=== PATIENT | female | born 1980 | race Caucasian/White ===

== ENCOUNTER 2022-10-13 16:45 | Inpatient (IN) ==
--- NOTE | 2022-10-13 17:07 | Emergency Department Note ---
Impression & Plan Alcohol withdrawal, High anion gap metabolic acidosis, Alcoholic ketoacidosis, Acute lactic acidosis, Dehydration, Lower abdominal pain, Transaminitis ED Provider Note NAME: DAX BAUM AGE: 42 SEX: F ARRIVES VIA: Ambulance INFORMANT: Patient ED PROVIDER(S): Quintin Alfred MD CHIEF COMPLAINT: Abdominal pain PLAN: Disposition: Admit MEDICAL DECISION MAKING: The patient is a pleasant 42-year-old woman with a past medical history of alcohol use disorder who presents to the emergency department for evaluation of nausea, body aches, feverishness and lower abdominal pain for the past several days worsening today and occurs in the setting of having elective bilateral salpingectomy 10 days ago at [facility] for sterilization. She eventually acknowledged that she does drink alcohol daily but did not drink for approximately a week after her surgery until she understood she was "cleared". She admits to resuming her alcohol consumption which typically will be a "bottle" of hard liquor/vodka several days ago around the onset of her symptoms. She denies cough, congestion, diarrhea, blood or burning with urination. On arrival to the emergency department the patient is anxious/restless, mildly tremulous, afebrile with heart rate in the 100s and blood pressure 150s/90s and vital signs otherwise stable. She appears clinically dry. She has mild lower abdominal tenderness without guarding or rebound. EKG without overt acute ischemia. CXR negative for acute cardiopulmonary process. WBC, hemoglobin and platelets within normal limits. INR 1.0, within normal limits. Chemistry demonstrates elevated anion gap metabolic acidosis with anion gap of 23 and bicarbonate of 16. Lactic acid 3.5 which cleared to 1.8 following IV fluid hydration. UA demonstrates 1+ bacteria however contaminated but with 4+ ketones consistent with the patient's clinically dry appearance and with suspected alcoholic ketoacidosis. LFTs were elevated with total bilirubin 2.0 and direct bilirubin 0.4 with AST and ALT 5858, respectively. Lipase not elev ated. TSH within limits. hCG was negative. Sodium 130 consistent with the patient alcohol use. Respiratory viral panel/[employer] was negative CT of the abdomen pelvis was negative for acute abnormalities. Note is made of hepatic steatosis. Upon evaluation patient was feeling some improvement following IV fluid hydration 30+cc/kg including D5 normal saline for suspected alcoholic ketoacidosis, antiemetics and IV Ativan for alcohol withdrawal. However she still was tachycardic and mildly tremulous and we did discuss that her symptoms likely are multifactorial related to component of alcohol withdrawal alcoholic ketoacidosis and dehydration in the setting of her postoperative status. She did agree with plan for admission for further management. [facility] for [facility]. Further management per admitting team. Triage Nursing notes reviewed and agree them. Prior/outside medical records reviewed Vital Signs: reviewed Differential diagnosis: Gastroenteritis, food borne illness, infections, appendicitis, diverticulitis, inflammatory bowel disease, obstruction, GI bleed, biliary pathology, volvulus, as well as other pathologies. ER treatment provided: See below. Diagnostics interpreted by me: ECG: Sinus tachycardia, 125 bpm, no ectopy, LVH, no overt ST elevation or depression, QTc 473, QRS 80. Cardiac Monitoring: An order for continuous cardiac monitoring was placed and demonstrated Sinus tachycardia, 125 bpm, no ectopy Laboratory studies: See below Imaging studies: See below Consultation(s): [facility] the patient for admission. HPI: The patient is a pleasant 42-year-old woman with a past medical history of alcohol use disorder who presents to the emergency department for evaluation of nausea, body aches, feverishness and lower abdominal pain for the past several days worsening today and occurs in the setting of having elective bilateral salpingectomy 10 days ago at [facility] for sterilization. She eventually acknowledged that she does drink alcohol daily but did not drink for approximately a week after her surgery until she understood she was "cleared". She admits to resuming her alcohol consumption which typically will be a "bottle" of hard liquor/vodka several days ago around the onset of her symptoms. She denies cough, congestion, diarrhea, blood or burning with urination. ROS: See above HPI for pertinent positives & negatives. A total of 10 systems reviewed and were otherwise negative. VITALS:See Below PHYSICAL EXAMINATION: GENERAL: Awake, alert, uncomfortable-appearing, in no distress HENT: Normocephalic, atraumatic. Oropharynx dry mucous membranes. EYES: Normal conjunctiva. Sclera non-icteric. NECK: Supple. No nuchal rigidity. FROM. No JVD. RESPIRATORY: Clear to auscultation. CARDIAC: Tachycardic rate, normal rhythm. Extremities warm and well perfused. Pulses equal. ABDOMEN: Soft, non-distended. Mild lower abdominal tenderness to palpation. No rebound or guarding. No masses. RECTAL: Deferred. MUSCULOSKELETAL: Chest examination reveals no tenderness. The back is symmetrical on inspection without obvious abnormality. There is no CVA tenderness to palpation. No joint edema. LOWER EXTREMITIES: Calves are equal size bilaterally and non-tender. No edema. No discoloration. NEURO: No focal sensory or motor deficits noted. Restless, mildly tremulous. DTRs within normal limits. There is no clonus. 5/5 strength and SILT x 4 extremities. Intact finger to nose. SKIN: No rash or jaundice noted. ED COURSE: Critical Care: I have personally spent greater than 75 minutes of critical care time in the direct management of this patient. This includes bedside care, interpretation of diagnostic studies, and testing, discussion with consultants, patient, and family members, and other required patient management activities. This 75 minutes is in excess of all separately billable procedures. Quintin Alfred MD Past Med/Surg History Medical History Alcohol use disorder Social History Smoking Status: Former smoker Tobacco Type: Cigarettes Second Hand Exposure: No; Do You Dip or Chew Tobacco: No; Tobacco Cessation Education Requested by Patient: No Hx Alcohol Use: Yes Alcohol type: hard liquor Hx Substance Use: No Preferred Language: Wallisian Communication Ability: Effective Call Center Trainer Required: No Beliefs That Will Affect Care: None Current Living Situation: Alone and Family Current Living Situation Comment: has 3 young daughters Other Information That Helps Us Care for You: No Feels Safe at Home: Yes Safety Concerns: Feels Safe At This Time Assistive Devices: None Allergies Allergies Allergy/AdvReac Type Severity Reaction Status Date / Time No Known Allergies Allergy Unverified 10/13/22 19:25 Home Meds Home Medications Medication Instructions Recorded Confirmed ibuprofen 200 mg tablet (Advil) 600 mg PO Q8 PRN Pain 10/13/22 10/13/22 Results & Data (ED) Vital Signs Vital Signs - 24 hr 10/13/22 16:53 10/13/22 17:00 10/13/22 17:03 Temperature 36.6 C 36.6 C Temperature Source Oral Oral Pulse Rate Pulse Rate [Radial] 109 H Pulse Rhythm [Radial] Regular Pulse Strength [Radial] Normal Respiratory Rate 17 20 Respiratory Effort / Characteristics Non-Labored Spontaneous Non-Labored Spontaneous Respiratory Depth Normal Normal Respiratory Pattern Regular Regular Blood Pressure [Left Arm] 159/99 H Blood Pressure Mean [Left Arm] 119 Blood Pressure Position [Left Arm] Pulse Oximetry 98 96 Oxygen Delivery Method Room Air Sepsis Recent Fever Within 48 Hours No Sepsis New/Unexplained Change in Mental Status Yes Sepsis Action Taken by Nursing No Action Required 10/13/22 17:03 10/13/22 19:09 10/13/22 21:06 Temperature Temperature Source Pulse Rate 108 H Pulse Rate [Radial] 116 H 121 H Pulse Rhythm [Radial] Pulse Strength [Radial] Respiratory Rate 18 18 Respiratory Effort / Characteristics Non-Labored Spontaneous Non-Labored Spontaneous Respiratory Depth Normal Normal Respiratory Pattern Blood Pressure [Left Arm] 153/99 H 166/95 H Blood Pressure Mean [Left Arm] 117 118 Blood Pressure Position [Left Arm] Sitting Sitting Pulse Oximetry 98 98 Oxygen Delivery Method Room Air Room Air Sepsis Recent Fever Within 48 Hours Sepsis New/Unexplained Change in Mental Status Sepsis Action Taken by Nursing 10/13/22 21:11 10/13/22 22:01 10/13/22 23:13 Temperature Temperature Source Pulse Rate 122 H Pulse Rate [Radial] 120 H 128 H Pulse Rhythm [Radial] Pulse Strength [Radial] Respiratory Rate 18 17 Respiratory Effort / Characteristics Non-Labored Spontaneous Respiratory Depth Normal Respiratory Pattern Blood Pressure [Left Arm] 140/93 136/87 Blood Pressure Mean [Left Arm] 108 103 Blood Pressure Position [Left Arm] Lying Pulse Oximetry 98 93 Oxygen Delivery Method Room Air Room Air Sepsis Recent Fever Within 48 Hours Sepsis New/Unexplained Change in Mental Status Sepsis Action Taken by Nursing Laboratory Data Attestation: I reviewed the patient's lab results. 10/13/22 17:00 10/13/22 17:00 Lab Results 10/13/22 10/13/22 10/13/22 Range/Units 17:00 17:00 17:00 WBC 6.63 (4.8-10.8) K/ul RBC 4.26 (4.20-5.40) M/uL Hgb 14.0 (12.0-16.0) g/dl Hct 39.2 (37.0-47.0) % MCV 92.0 (80.0-100.0) fL MCH 32.9 (25.0-34.0) pg MCHC 35.7 (32.0-36.0) g/dL RDW Std Deviation 41.5 (36.4-46.3) fL RDW Coeff of Andree 12.3 (11.5-14.5) % Plt Count 176 (130-400) K/uL MPV 10.2 (9.4-12.4) fL Immature Gran % (Auto) 0.2 % Neut % (Auto) 76.2 % Lymph % (Auto) 17.8 % Cochran % (Auto) 4.7 % Eos % (Auto) 0.0 % Baso % (Auto) 1.1 % Neut # (Auto) 5.06 (1.40-6.50) K/uL Lymph # (Auto) 1.18 L (1.2-3.4) K/uL Cochran # (Auto) 0.31 (0.11-0.59) K/uL Eos # (Auto) 0.00 (0-0.50) K/uL Baso # (Auto) 0.07 (0-0.2) K/uL Immature Gran # (Auto) 0.01 (0.01-0.20) K/uL PT (9.0-12.0) Seconds INR (0.9-1.1) Sodium 130 L (136-145) mmol/L Potassium 3.4 L (3.5-5.1) mmol/L Chloride 91 L (98-107) mmol/L Carbon Dioxide 16 L (21-32) mmol/L Anion Gap 23 H (3-11) BUN 6 (6-23) mg/dl Creatinine 0.57 L (0.6-1.2) mg/dl Est Cr Clr Drug Dosing 154.0 ml/min Est GFR ( Amer) 133.5 ml/min Est GFR (Non-Af Amer) 115.1 ml/min BUN/Creatinine Ratio 10.5 (10-20) Glucose 96 (70-99(Fasting)) mg/dl Lactate (0.4-2.0) mmol/L Calcium 9.6 (8.6-10.3) mg/dl Phosphorus 2.4 L (2.5-4.9) mg/dl Magnesium 2.0 (1.7-2.4) mg/dl Total Bilirubin 2.0 H (0.2-1.0) mg/dl Direct Bilirubin 0.4 H (0-0.2) mg/dl AST 58 H (13-39) U/L ALT 58 H (7-52) U/L Alkaline Phosphatase 67 (34-104) U/L Total Protein 7.7 (6.0-8.3) gm/dl Albumin 5.0 (3.4-5.0) gm/dl Globulin 2.7 (2.5-4.0) gm/dl Albumin/Globulin Ratio 1.9 (0.9-2) Lipase 25 (11-82) U/L TSH 1.503 (0.300-4.500) uIu/ml HCG, Qual (Negative) Urine Color Urine Appearance (Clear) Urine pH (4.5-7.5) Ur Specific Daykin (1.000-1.030) Urine Protein (Negative) Urine Glucose (UA) (Negative) Urine Ketones (Negative) Urine Blood (Negative) Urine Nitrite (Negative) Urine Bilirubin (Negative) Urine Urobilinogen (Negative) Ur Leukocyte Esterase (Negative) Urine WBC (Auto) (0-5) /hpf Urine RBC (Auto) (0-4) /hpf U Hyaline Cast (Auto) (0-5) /lpf U Epithel Cells (Auto) (0-5) /lpf Urine Bacteria (Auto) (Negative) Urine Opiates Screen (Neg) Ur Methadone, Qual (Neg) Urine Barbiturates (Neg) Ur Phencyclidine (PCP) (Neg) U Amphetamin/Meth Scrn (Neg) MDMA (Ecstasy) Screen (Neg) U Benzodiazepines Scrn (Neg) Ur Cocaine Metabolite (Neg) U Marijuana (THC) Screen (Neg) Ethyl Alcohol mg/dL (<10.0) mg/dl Adenovirus (PCR) (NotDetected) B. pertussis DNA (PCR) (NotDetected) B.parapertussis DNA PCR (NotDetected) C. pneumoniae DNA (PCR) (NotDetected) Coronavirus OC43 (PCR) (NotDetected) Coronavirus HKU1 (PCR) (NotDetected) Coronavirus 229E (PCR) (NotDetected) SARS-CoV-2 (PCR) (NotDetected) Coronavirus NL63 (PCR) (NotDetected) Human Metapneumovir PCR (NotDetected) Influenza Type A (PCR) (NotDetected) Influenza Type B (PCR) (NotDetected) M. pneumoniae (PCR) (NotDetected) Parainfluenza 1 (PCR) (NotDetected) Parainfluenza 2 (PCR) (NotDetected) Parainfluenza 3 (PCR) (NotDetected) Parainfluenza 4 (PCR) (NotDetected) RSV (PCR) (NotDetected) Entero/Rhino (PCR) (NotDetected) 10/13/22 10/13/22 10/13/22 Range/Units 17:00 17:10 17:25 WBC (4.8-10.8) K/ul RBC (4.20-5.40) M/uL Hgb (12.0-16.0) g/dl Hct (37.0-47.0) % MCV (80.0-100.0) fL MCH (25.0-34.0) pg MCHC (32.0-36.0) g/dL RDW Std Deviation (36.4-46.3) fL RDW Coeff of Andree (11.5-14.5) % Plt Count (130-400) K/uL MPV (9.4-12.4) fL Immature Gran % (Auto) % Neut % (Auto) % Lymph % (Auto) % Cochran % (Auto) % Eos % (Auto) % Baso % (Auto) % Neut # (Auto) (1.40-6.50) K/uL Lymph # (Auto) (1.2-3.4) K/uL Cochran # (Auto) (0.11-0.59) K/uL Eos # (Auto) (0-0.50) K/uL Baso # (Auto) (0-0.2) K/uL Immature Gran # (Auto) (0.01-0.20) K/uL PT 10.6 (9.0-12.0) Seconds INR 1.0 (0.9-1.1) Sodium (136-145) mmol/L Potassium (3.5-5.1) mmol/L Chloride (98-107) mmol/L Carbon Dioxide (21-32) mmol/L Anion Gap (3-11) BUN (6-23) mg/dl Creatinine (0.6-1.2) mg/dl Est Cr Clr Drug Dosing ml/min Est GFR ( Amer) ml/min Est GFR (Non-Af Amer) ml/min BUN/Creatinine Ratio (10-20) Glucose (70-99(Fasting)) mg/dl Lactate (0.4-2.0) mmol/L Calcium (8.6-10.3) mg/dl Phosphorus (2.5-4.9) mg/dl Magnesium (1.7-2.4) mg/dl Total Bilirubin (0.2-1.0) mg/dl Direct Bilirubin (0-0.2) mg/dl AST (13-39) U/L ALT (7-52) U/L Alkaline Phosphatase (34-104) U/L Total Protein (6.0-8.3) gm/dl Albumin (3.4-5.0) gm/dl Globulin (2.5-4.0) gm/dl Albumin/Globulin Ratio (0.9-2) Lipase (11-82) U/L TSH (0.300-4.500) uIu/ml HCG, Qual Negative (Negative) Urine Color Yellow Urine Appearance Clear (Clear) Urine pH 5.5 (4.5-7.5) Ur Specific Daykin 1.022 (1.000-1.030) Urine Protein 1+ H (Negative) Urine Glucose (UA) Negative (Negative) Urine Ketones 4+ H (Negative) Urine Blood 2+ H (Negative) Urine Nitrite Negative (Negative) Urine Bilirubin Negative (Negative) Urine Urobilinogen Negative (Negative) Ur Leukocyte Esterase Negative (Negative) Urine WBC (Auto) 1-5 (0-5) /hpf Urine RBC (Auto) 5-10 H (0-4) /hpf U Hyaline Cast (Auto) 1-5 (0-5) /lpf U Epithel Cells (Auto) >30 H (0-5) /lpf Urine Bacteria (Auto) 1+ H (Negative) Urine Opiates Screen (Neg) Ur Methadone, Qual (Neg) Urine Barbiturates (Neg) Ur Phencyclidine (PCP) (Neg) U Amphetamin/Meth Scrn (Neg) MDMA (Ecstasy) Screen (Neg) U Benzodiazepines Scrn (Neg) Ur Cocaine Metabolite (Neg) U Marijuana (THC) Screen (Neg) Ethyl Alcohol mg/dL (<10.0) mg/dl Adenovirus (PCR) (NotDetected) B. pertussis DNA (PCR) (NotDetected) B.parapertussis DNA PCR (NotDetected) C. pneumoniae DNA (PCR) (NotDetected) Coronavirus OC43 (PCR) (NotDetected) Coronavirus HKU1 (PCR) (NotDetected) Coronavirus 229E (PCR) (NotDetected) SARS-CoV-2 (PCR) (NotDetected) Coronavirus NL63 (PCR) (NotDetected) Human Metapneumovir PCR (NotDetected) Influenza Type A (PCR) (NotDetected) Influenza Type B (PCR) (NotDetected) M. pneumoniae (PCR) (NotDetected) Parainfluenza 1 (PCR) (NotDetected) Parainfluenza 2 (PCR) (NotDetected) Parainfluenza 3 (PCR) (NotDetected) Parainfluenza 4 (PCR) (NotDetected) RSV (PCR) (NotDetected) Entero/Rhino (PCR) (NotDetected) 10/13/22 10/13/22 10/13/22 Range/Units 17:25 17:30 17:56 WBC (4.8-10.8) K/ul RBC (4.20-5.40) M/uL Hgb (12.0-16.0) g/dl Hct (37.0-47.0) % MCV (80.0-100.0) fL MCH (25.0-34.0) pg MCHC (32.0-36.0) g/dL RDW Std Deviation (36.4-46.3) fL RDW Coeff of Andree (11.5-14.5) % Plt Count (130-400) K/uL MPV (9.4-12.4) fL Immature Gran % (Auto) % Neut % (Auto) % Lymph % (Auto) % Cochran % (Auto) % Eos % (Auto) % Baso % (Auto) % Neut # (Auto) (1.40-6.50) K/uL Lymph # (Auto) (1.2-3.4) K/uL Cochran # (Auto) (0.11-0.59) K/uL Eos # (Auto) (0-0.50) K/uL Baso # (Auto) (0-0.2) K/uL Immature Gran # (Auto) (0.01-0.20) K/uL PT (9.0-12.0) Seconds INR (0.9-1.1) Sodium (136-145) mmol/L Potassium (3.5-5.1) mmol/L Chloride (98-107) mmol/L Carbon Dioxide (21-32) mmol/L Anion Gap (3-11) BUN (6-23) mg/dl Creatinine (0.6-1.2) mg/dl Est Cr Clr Drug Dosing ml/min Est GFR ( Amer) ml/min Est GFR (Non-Af Amer) ml/min BUN/Creatinine Ratio (10-20) Glucose (70-99(Fasting)) mg/dl Lactate (0.4-2.0) mmol/L Calcium (8.6-10.3) mg/dl Phosphorus (2.5-4.9) mg/dl Magnesium (1.7-2.4) mg/dl Total Bilirubin (0.2-1.0) mg/dl Direct Bilirubin (0-0.2) mg/dl AST (13-39) U/L ALT (7-52) U/L Alkaline Phosphatase (34-104) U/L Total Protein (6.0-8.3) gm/dl Albumin (3.4-5.0) gm/dl Globulin (2.5-4.0) gm/dl Albumin/Globulin Ratio (0.9-2) Lipase (11-82) U/L TSH (0.300-4.500) uIu/ml HCG, Qual (Negative) Urine Color Urine Appearance (Clear) Urine pH (4.5-7.5) Ur Specific Daykin (1.000-1.030) Urine Protein (Negative) Urine Glucose (UA) (Negative) Urine Ketones (Negative) Urine Blood (Negative) Urine Nitrite (Negative) Urine Bilirubin (Negative) Urine Urobilinogen (Negative) Ur Leukocyte Esterase (Negative) Urine WBC (Auto) (0-5) /hpf Urine RBC (Auto) (0-4) /hpf U Hyaline Cast (Auto) (0-5) /lpf U Epithel Cells (Auto) (0-5) /lpf Urine Bacteria (Auto) (Negative) Urine Opiates Screen Neg (Neg) Ur Methadone, Qual Neg (Neg) Urine Barbiturates Neg (Neg) Ur Phencyclidine (PCP) Neg (Neg) U Amphetamin/Meth Scrn Neg (Neg) MDMA (Ecstasy) Screen Neg (Neg) U Benzodiazepines Scrn Neg (Neg) Ur Cocaine Metabolite Neg (Neg) U Marijuana (THC) Screen Neg (Neg) Ethyl Alcohol mg/dL 40.8 H (<10.0) mg/dl Adenovirus (PCR) Not Detected (NotDetected) B. pertussis DNA (PCR) Not Detected (NotDetected) B.parapertussis DNA PCR Not Detected (NotDetected) C. pneumoniae DNA (PCR) Not Detected (NotDetected) Coronavirus OC43 (PCR) Not Detected (NotDetected) Coronavirus HKU1 (PCR) Not Detected (NotDetected) Coronavirus 229E (PCR) Not Detected (NotDetected) SARS-CoV-2 (PCR) Not Detected (NotDetected) Coronavirus NL63 (PCR) Not Detected (NotDetected) Human Metapneumovir PCR Not Detected (NotDetected) Influenza Type A (PCR) Not Detected (NotDetected) Influenza Type B (PCR) Not Detected (NotDetected) M. pneumoniae (PCR) Not Detected (NotDetected) Parainfluenza 1 (PCR) Not Detected (NotDetected) Parainfluenza 2 (PCR) Not Detected (NotDetected) Parainfluenza 3 (PCR) Not Detected (NotDetected) Parainfluenza 4 (PCR) Not Detected (NotDetected) RSV (PCR) Not Detected (NotDetected) Entero/Rhino (PCR) Not Detected (NotDetected) 10/13/22 10/13/22 10/13/22 Range/Units 19:11 21:51 23:54 WBC (4.8-10.8) K/ul RBC (4.20-5.40) M/uL Hgb (12.0-16.0) g/dl Hct (37.0-47.0) % MCV (80.0-100.0) fL MCH (25.0-34.0) pg MCHC (32.0-36.0) g/dL RDW Std Deviation (36.4-46.3) fL RDW Coeff of Andree (11.5-14.5) % Plt Count (130-400) K/uL MPV (9.4-12.4) fL Immature Gran % (Auto) % Neut % (Auto) % Lymph % (Auto) % Cochran % (Auto) % Eos % (Auto) % Baso % (Auto) % Neut # (Auto) (1.40-6.50) K/uL Lymph # (Auto) (1.2-3.4) K/uL Cochran # (Auto) (0.11-0.59) K/uL Eos # (Auto) (0-0.50) K/uL Baso # (Auto) (0-0.2) K/uL Immature Gran # (Auto) (0.01-0.20) K/uL PT (9.0-12.0) Seconds INR (0.9-1.1) Sodium 130 L (136-145) mmol/L Potassium 3.6 (3.5-5.1) mmol/L Chloride 97 L (98-107) mmol/L Carbon Dioxide 17 L (21-32) mmol/L Anion Gap 16 H (3-11) BUN 6 (6-23) mg/dl Creatinine 0.60 (0.6-1.2) mg/dl Est Cr Clr Drug Dosing 146.3 ml/min Est GFR ( Amer) 131.2 ml/min Est GFR (Non-Af Amer) 113.2 ml/min BUN/Creatinine Ratio 10.0 (10-20) Glucose 171 H (70-99(Fasting)) mg/dl Lactate 3.5 H* 1.8 (0.4-2.0) mmol/L Calcium 8.5 L (8.6-10.3) mg/dl Phosphorus (2.5-4.9) mg/dl Magnesium (1.7-2.4) mg/dl Total Bilirubin (0.2-1.0) mg/dl Direct Bilirubin (0-0.2) mg/dl AST (13-39) U/L ALT (7-52) U/L Alkaline Phosphatase (34-104) U/L Total Protein (6.0-8.3) gm/dl Albumin (3.4-5.0) gm/dl Globulin (2.5-4.0) gm/dl Albumin/Globulin Ratio (0.9-2) Lipase (11-82) U/L TSH (0.300-4.500) uIu/ml HCG, Qual (Negative) Urine Color Urine Appearance (Clear) Urine pH (4.5-7.5) Ur Specific Daykin (1.000-1.030) Urine Protein (Negative) Urine Glucose (UA) (Negative) Urine Ketones (Negative) Urine Blood (Negative) Urine Nitrite (Negative) Urine Bilirubin (Negative) Urine Urobilinogen (Negative) Ur Leukocyte Esterase (Negative) Urine WBC (Auto) (0-5) /hpf Urine RBC (Auto) (0-4) /hpf U Hyaline Cast (Auto) (0-5) /lpf U Epithel Cells (Auto) (0-5) /lpf Urine Bacteria (Auto) (Negative) Urine Opiates Screen (Neg) Ur Methadone, Qual (Neg) Urine Barbiturates (Neg) Ur Phencyclidine (PCP) (Neg) U Amphetamin/Meth Scrn (Neg) MDMA (Ecstasy) Screen (Neg) U Benzodiazepines Scrn (Neg) Ur Cocaine Metabolite (Neg) U Marijuana (THC) Screen (Neg) Ethyl Alcohol mg/dL (<10.0) mg/dl Adenovirus (PCR) (NotDetected) B. pertussis DNA (PCR) (NotDetected) B.parapertussis DNA PCR (NotDetected) C. pneumoniae DNA (PCR) (NotDetected) Coronavirus OC43 (PCR) (NotDetected) Coronavirus HKU1 (PCR) (NotDetected) Coronavirus 229E (PCR) (NotDetected) SARS-CoV-2 (PCR) (NotDetected) Coronavirus NL63 (PCR) (NotDetected) Human Metapneumovir PCR (NotDetected) Influenza Type A (PCR) (NotDetected) Influenza Type B (PCR) (NotDetected) M. pneumoniae (PCR) (NotDetected) Parainfluenza 1 (PCR) (NotDetected) Parainfluenza 2 (PCR) (NotDetected) Parainfluenza 3 (PCR) (NotDetected) Parainfluenza 4 (PCR) (NotDetected) RSV (PCR) (NotDetected) Entero/Rhino (PCR) (NotDetected) Administered Medications Folic Acid (Folic Acid 1 Mg Tab) [facility] [place] Stop: 11/13/22 08:59 Last Admin: 10/14/22 09:14 Dose: Not Given Documented By: CB Lactated Ringer's (Lr) 1,000 mls @ 125 mls/hr IV .Q8H NAOMY Stop: 11/13/22 14:29 Last Admin: 10/14/22 14:36 Dose: 125 mls/hr Documented By: JAMES Lorazepam (Lorazepam 2 Mg/1 Ml Vial) 2 mg IV UD PRN; Protocol PRN Reason: EtOH Withdrawal AWSS Score 8,9 Stop: 11/13/22 14:06 Last Admin: 10/14/22 14:36 Dose: 2 mg Documented By: JAMES Multivitamins (Multivitamin Tab) 1 tab PO [facility] Stop: 11/13/22 08:59 Last Admin: 10/14/22 09:14 Dose: Not Given Documented By: JAMES Thiamine HCl (Thiamine Hcl 100 Mg Tab) 100 mg PO [facility] Stop: 11/13/22 08:59 Last Admin: 10/14/22 09:14 Dose: Not Given Documented By: CB Discontinued Medications Sodium Chloride (Nss 1000ml) 2,000 mls @ 999 mls/hr IV .Q2H1M ONE Stop: 10/13/22 19:18 Last Infusion: 10/13/22 20:46 Dose: 0 mls/hr Documented By: Admin: 10/13/22 17:50 Dose: 999 mls/hr Documented By: DL Acetaminophen (Ofirmev) 1,000 mg in 100 mls @ 400 mls/hr IV NOW STA Stop: 10/13/22 17:32 Last Infusion: 10/13/22 18:16 Dose: 0 mls/hr Documented By: Admin: 10/13/22 17:58 Dose: 400 mls/hr Documented By: KATH Famotidine (Pepcid 20mg Iv Push) 20 mg in 5 mls @ 2.5 mls/min IV NOW STA Stop: 10/13/22 17:43 Last Admin: 10/13/22 17:50 Dose: 2.5 mls/min Documented By: KATH Thiamine HCl 200 mg/ Sodium (Chloride) 52 mls @ 210 mls/hr IV NOW STA Stop: 10/13/22 19:07 Last Infusion: 10/13/22 21:04 Dose: 0 mls/hr Documented By: Admin: 10/13/22 20:08 Dose: 210 mls/hr Documented By: CC Dextrose/Sodium Chloride (D5w And Nss) 1,000 mls @ 999 mls/hr IV .Q1H1M STA Stop: 10/13/22 19:53 Last Infusion: 10/13/22 23:17 Dose: 0 mls/hr Documented By: Admin: 10/13/22 19:31 Dose: 999 mls/hr Documented By: CC Dextrose/Sodium Chloride (D5w And Nss) 1,000 mls @ 999 mls/hr IV .Q1H1M STA Stop: 10/13/22 22:15 Last Infusion: 10/13/22 23:39 Dose: 0 mls/hr Documented By: Admin: 10/13/22 22:30 Dose: 999 mls/hr Documented By: CC Potassium Chloride/Sodium Chloride (Normal Saline W/20 Meq Kcl) 20 meq in 1,000 mls @ 60 mls/hr IV .[id number] STA; Protocol Stop: 10/14/22 15:49 Last Infusion: 10/14/22 06:05 Dose: 0 mls/hr Documented By: Infusion: 10/14/22 06:05 Dose: 0 mls/hr Documented By: Admin: 10/13/22 23:31 Dose: 60 mls/hr Documented By: CC Lactated Ringer's (Lr) 1,000 mls @ 125 mls/hr IV .Q8H ONE Stop: 10/14/22 12:29 Last Infusion: 10/14/22 14:35 Dose: 0 mls/hr Documented By: Admin: 10/14/22 05:31 Dose: 80 mls/hr Documented By: LAT Ioversol (Optiray 320 100ml) 94 ml IV ONCE ONE Stop: 10/13/22 20:20 Last Admin: 10/13/22 20:19 Dose: 94 ml Documented By: SHAUNA Lorazepam (Lorazepam 2 Mg/1 Ml Vial) 1 mg IV NOW STA Stop: 10/13/22 17:43 Last Admin: 10/13/22 17:55 Dose: 1 mg Documented By: KATH Lorazepam (Lorazepam 2 Mg/1 Ml Vial) 1 mg IV NOW STA Stop: 10/13/22 21:16 Last Admin: 10/13/22 21:41 Dose: 1 mg Documented By: CC Lorazepam (Lorazepam 2 Mg/1 Ml Vial) 2 mg IV NOW STA Stop: 10/13/22 22:49 Last Admin: 10/13/22 23:09 Dose: 2 mg Documented By: REID Ondansetron HCl (Ondansetron Inj 2 Mg/Ml 2 Ml Vial) 4 mg IV NOW STA Stop: 10/13/22 17:43 Last Admin: 10/13/22 17:52 Dose: 4 mg Documented By: KATH Potassium Chloride (Potassium Chloride Pwd 20 Meq Pack) 40 meq PO NOW STA Stop: 10/13/22 23:08 Last Admin: 10/13/22 23:31 Dose: 40 meq Documented By: CC Sucralfate (Sucralfate 1 Gm/10 Ml Udc) 1 gm PO NOW STA Stop: 10/13/22 22:49 Last Admin: 10/13/22 23:08 Dose: 1 gm Documented By: AN Imaging Data Radiologist's Impression: Chest X-Ray 10/13/22 17:17 XR chest 1V portable CLINICAL HISTORY: dizziness TECHNIQUE: Single frontal radiograph of the chest was obtained. Comparison: None available at the time of this dictation. FINDINGS: No lines and tubes are seen. The cardiomediastinal silhouette is normal. The lungs are clear. No evidence of pleural effusion or pneumothorax. IMPRESSION: No acute chest disease. ACT 112: Negative or not required by law. Electronically signed by: Lobo Murphy M.D. 10/13/2022 5:57 PM Abdomen/Pelvis CT 10/13/22 17:19 Exam(s): CT ABDOMEN + PELVIS With Contrast IV Amt: 94 ml optiray 320 EXAM: CT Abdomen and Pelvis With Intravenous Contrast CLINICAL HISTORY: Reason for exam: abd pain, 10 days b s/p salpingectomy. TECHNIQUE: Axial computed tomography images of the abdomen and pelvis with intravenous contrast. CTDI is 27.62 mGy and DLP is 1451.92 mGy-cm. Automated exposure control was utilized for the study. A dose lowering technique was utilized adhering to the principles of ALARA. CONTRAST: Patient received 94 ml optiray 320 of IV contrast COMPARISON: No relevant prior studies available. FINDINGS: Lung bases: Unremarkable. No mass. No consolidation. ABDOMEN: Liver: Severe hepatic steatosis. Gallbladder and bile ducts: Unremarkable. No calcified stones. No ductal dilation. Pancreas: Unremarkable. No mass. No ductal dilation. Spleen: Unremarkable. No splenomegaly. Adrenals: Unremarkable. No mass. Kidneys and ureters: Unremarkable. No solid mass. No hydronephrosis. Stomach and bowel: Diverticulosis, without acute diverticulitis. No small bowel obstruction. No free intraperitoneal air. PELVIS: Appendix: Normal appendix. Bladder: Unremarkable. No mass. Reproductive: Unremarkable as visualized. ABDOMEN and PELVIS: Intraperitoneal space: Unremarkable. No free air. No significant fluid collection. Bones/joints: No acute fracture. No dislocation. Soft tissues: Unremarkable. Vasculature: Unremarkable. No abdominal aortic aneurysm. Lymph nodes: Unremarkable. No enlarged lymph nodes. IMPRESSION: 1. Normal appendix. 2. Severe hepatic steatosis. 3. Diverticulosis, without acute diverticulitis. No small bowel obstruction. No free intraperitoneal air. Electronically signed by: Gonzalo Mcnair MD 10/13/22 21:04 PM Discharge Plan Visit Data Chief Complaint: Dizziness Stated Complaint: DIZZINESS, HOT TO TOUCH, ABD SURGERY 10 DAYS AGO ED Provider: Quintin Alfred Discharge Problem: Alcohol withdrawal, High anion gap metabolic acidosis, Alcoholic ketoacidosis, Acute lactic acidosis, Dehydration, Lower abdominal pain, Transaminitis Patient Disposition: Admitted As Inpatient Discharge Instructions Interventions: ED Discharge Assessment Last Done: 10/14/22 01:07
[2022-10-13] MEDS ORDERED: SODIUM CHLORIDE 0.9% 1000ML 2,000 ML IV ONE (17:18)
[2022-10-13] MEDS ORDERED: ACETAMINOPHEN 1,000 MG/100 ML VIAL IV STA (17:18)
[2022-10-13 17:41] LABS: Basophils # (auto) 0.07 K/uL (0-0.2); Basophils % (auto) 1.1 %; Hematocrit (blood only) 39.2 % (37.0-47.0); Immature Granulocytes # (auto) 0.01 K/uL (0.01-0.20); Immature Granulocytes % (auto) 0.2 %; Lymphocytes # (auto) 1.18 K/uL (1.2-3.4); Lymphocytes % (auto) 17.8 %; Mean Corpuscular Hemoglobin 32.9 pg (25.0-34.0); Mean Corpuscular Hgb Conc 35.7 g/dL (32.0-36.0); Mean Platelet Volume 10.2 fL (9.4-12.4); Monocytes # (auto) 0.31 K/uL (0.11-0.59); Monocytes % (auto) 4.7 %; Neutrophils # (auto) 5.06 K/uL (1.40-6.50); Neutrophils % (auto) 76.2 %; Platelet Count 176 K/uL (130-400); RDW Coefficient of Variation 12.3 % (11.5-14.5); RDW Standard Deviation 41.5 fL (36.4-46.3); Red Blood Count 4.26 M/uL (4.20-5.40); White Blood Count 6.63 K/ul (4.8-10.8)
[2022-10-13] MEDS ORDERED: LORazepam 2 MG/1 ML VIAL IV STA ×3 (17:42→22:48)
[2022-10-13] MEDS ORDERED: FAMOTIDINE 20MG IV PUSH 20 MG/5 ML SYR IV STA (17:42)
[2022-10-13] MEDS ORDERED: ONDANSETRON INJ 2 MG/ML 2 ML VIAL IV STA (17:42)
[2022-10-13 17:47] LABS: Appearance Urine Clear (Clear); Bacteria Urine Automated 1+ (Negative); Bilirubin Urine Negative (Negative); Blood Urine 2+ (Negative); Color Urine Yellow; Epithelial Cell Urine Auto >30 /lpf (0-5); Glucose Urine UA Negative (Negative); Ketones Urine 4+ (Negative); Leukocyte Esterase Urine Negative (Negative); Nitrite Urine Negative (Negative); Protein Urine 1+ (Negative); Specific Gravity Urine 1.022 (1.000-1.030); Urobilinogen Urine Negative (Negative); pH Urine 5.5 (4.5-7.5)
[2022-10-13 17:52] LABS: Pregnancy Test, Serum Negative (Negative)
[2022-10-13 17:53] LABS: Albumin Globulin Ratio 1.9 (0.9-2); BUN Creatinine Ratio 10.5 (10-20); Calcium 9.6 mg/dl (8.6-10.3); Est GFR (African American) 133.5 ml/min; Est GFR (Non-African American) 115.1 ml/min; Globulin 2.7 gm/dl (2.5-4.0); Phosphorus 2.4 mg/dl (2.5-4.9); Potassium 3.4 mmol/L (3.5-5.1); Total Protein 7.7 gm/dl (6.0-8.3)
--- NOTE | 2022-10-13 17:59 | XRay Report ---
XR chest 1V portable CLINICAL HISTORY: dizziness TECHNIQUE: Single frontal radiograph of the chest was obtained. Comparison: None available at the time of this dictation. FINDINGS: No lines and tubes are seen. The cardiomediastinal silhouette is normal. The lungs are clear. No evid ence of pleural effusion or pneumothorax. IMPRESSION: No acute chest disease. ACT 112: Negative or not required by law. Electronically signed by: Lobo Murphy M.D. 10/13/2022 5:57 PM
[2022-10-13 18:27] LABS: Adenovirus PCR Not Detected (NotDetected); Bordetella parapertussis PCR Not Detected (NotDetected); Bordetella pertussis PCR Not Detected (NotDetected); Chlamydia pneumoniae PCR Not Detected (NotDetected); Coronavirus 229E PCR Not Detected (NotDetected); Coronavirus CoV-2 (COVID19)PCR Not Detected (NotDetected); Coronavirus HKU1 PCR Not Detected (NotDetected); Coronavirus NL63 PCR Not Detected (NotDetected); Coronavirus OC43PCR Not Detected (NotDetected); Human Metapneumovirus PCR Not Detected (NotDetected); Influenza A PCR Not Detected (NotDetected); Influenza B PCR Not Detected (NotDetected); Mycoplasma pneumoniae PCR Not Detected (NotDetected); Parainfluenza Virus 1 PCR Not Detected (NotDetected); Parainfluenza Virus 2 PCR Not Detected (NotDetected); Parainfluenza Virus 3 PCR Not Detected (NotDetected); Parainfluenza Virus 4 PCR Not Detected (NotDetected); Respiratory Syncytial VirusPCR Not Detected (NotDetected); Rhinovirus/Enterovirus PCR Not Detected (NotDetected)
[2022-10-13] MEDS ORDERED: THIAMINE HCL 200 MG in SODIUM CHLORIDE 0.9% 50 ML IV STA (18:53)
[2022-10-13] MEDS ORDERED: D5W AND NSS 1,000 ML IV STA ×2 (18:53→21:15)
[2022-10-13 19:13] LABS: Bilirubin Direct 0.4 mg/dl (0-0.2)
[2022-10-13] MEDS ORDERED: OPTIRAY 320 100ml IV ONE (20:19)
--- NOTE | 2022-10-13 21:04 | CT Scan Report ---
Exam(s): CT ABDOMEN + PELVIS With Contrast IV Amt: 94 ml optiray 320 EXAM: CT Abdomen and Pelvis With Intravenous Contrast CLINICAL HISTORY: Reason for exam: abd pain, 10 days b s/p salpingectomy. TECHNIQUE: Axial computed tomography images of the abdomen and pelvis with intravenous contrast. CTDI is 27.62 mGy and DLP is 1451.92 mGy-cm. Automated exposure control was utilized for the study. A dose lowering technique was utilized adhering to the principles of ALARA. CONTRAST: Patient received 94 ml optiray 320 of IV contrast COMPARISON: No relevant prior studies available. FINDINGS: Lung bases: Unremarkable. No mass. No consolidation. ABDOMEN: Liver: Severe hepatic steatosis. Gallbladder and bile ducts: Unremarkable. No calcified stones. No ductal dilation. Pancreas: Unremarkable. No mass. No ductal dilation. Spleen: Unremarkable. No splenomegaly. Adrenals: Unremarkable. No mass. Kidneys and ureters: Unremarkable. No solid mass. No hydronephrosis. Stomach and bowel: Diverticulosis, without acute diverticulitis. No small bowel obstruction. No free intraperitoneal air. PELVIS: Appendix: Normal appendix. Bladder: Unremarkable. No mass. Reproductive: Unremarkable as visualized. ABDOMEN and PELVIS: Intraperitoneal space: Unremarkable. No free air. No significant fluid collection. Bones/joints: No acute fracture. No dislocation. Soft tissues: Unremarkable. Vasculature: Unremarkable. No abdominal aortic aneurysm. Lymph nodes: Unremarkable. No enlarged lymph nodes. IMPRESSION: 1. Normal appendix. 2. Severe hepatic steatosis. 3. Diverticulosis, without acute diverticulitis. No small bowel obstruction. No free intraperitoneal air. Electronically signed by: Gonzalo Mcnair MD 10/13/22 21:04 PM
[2022-10-13 21:09] LABS: Amphetamines+Metham, Urine Neg (Neg); Barbiturates, Urine Neg (Neg); Benzodiazepine, Urine Neg (Neg); Cocaine, Urine Neg (Neg); MDMA (Ecstacy), Urine Neg (Neg); Methadone, Urine Neg (Neg); Opiate, Urine Neg (Neg); Phencyclidine, Urine Neg (Neg)
[2022-10-13] MEDS ORDERED: SUCRALFATE 1 GM/10 ML UDC PO STA (22:48)
[2022-10-13] MEDS ORDERED: POTASSIUM CHLORIDE PWD 20 MEQ PACK PO STA (23:07)
[2022-10-13] MEDS ORDERED: NSS + 20MEQ KCL 20 MEQ/1,000 ML BAG IV STA (23:10)
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
[2022-10-13] MEDS ORDERED: oxyCODONE HCL IR 5 MG TAB (IMMEDIATE RELEASE) PO PRN (23:59)
[2022-10-13] MEDS ORDERED: PROMETHAZINE HCL 12.5 MG in SODIUM CHLORIDE 0.9% 50 ML IV PRN (23:59)
[2022-10-13] MEDS ORDERED: MECLIZINE 12.5 MG TAB PO PRN (23:59)
[2022-10-13] MEDS ORDERED: LORazepam 2 MG/1 ML VIAL IV PRN (23:59)
[2022-10-14] MEDS ORDERED: ACETAMINOPHEN 325 MG TAB PO PRN (00:02)
[2022-10-14 00:06] LABS: Prothrombin Time 10.6 Seconds (9.0-12.0)
[2022-10-14 00:27] LABS: Calcium 8.5 mg/dl (8.6-10.3); Creatinine Clr Calc Pharmacy 146.3 ml/min; Est GFR (African American) 131.2 ml/min; Est GFR (Non-African American) 113.2 ml/min; Potassium 3.6 mmol/L (3.5-5.1)
[2022-10-14] MEDS ORDERED: LACTATED RINGER'S 1,000 ML IV ONE (04:30)
[2022-10-14 08:46] LABS: Basophils # (auto) 0.02 K/uL (0-0.2); Basophils % (auto) 0.4 %; Eosinophils # (auto) 0.03 K/uL (0-0.50); Eosinophils % (auto) 0.5 %; Hematocrit (blood only) 33.5 % (37.0-47.0); Immature Granulocytes # (auto) 0.02 K/uL (0.01-0.20); Immature Granulocytes % (auto) 0.4 %; Lymphocytes # (auto) 0.99 K/uL (1.2-3.4); Lymphocytes % (auto) 17.9 %; Mean Corpuscular Hemoglobin 32.8 pg (25.0-34.0); Mean Corpuscular Hgb Conc 35.8 g/dL (32.0-36.0); Mean Corpuscular Volume 91.5 fL (80.0-100.0); Monocytes # (auto) 0.29 K/uL (0.11-0.59); Monocytes % (auto) 5.2 %; Neutrophils # (auto) 4.19 K/uL (1.40-6.50); Neutrophils % (auto) 75.6 %; Platelet Count 134 K/uL (130-400); RDW Coefficient of Variation 12.3 % (11.5-14.5); RDW Standard Deviation 41.1 fL (36.4-46.3); Red Blood Count 3.66 M/uL (4.20-5.40); White Blood Count 5.54 K/ul (4.8-10.8)
--- NOTE | 2022-10-14 08:53 | Electrocardiogram Report ---
Test Reason : Blood Pressure : / mmHG Vent. Rate : 125 BPM Atrial Rate : 125 BPM P-R Int : 126 ms QRS Dur : 080 ms QT Int : 328 ms P-R-T Axes : 065 076 047 degrees QTc Int : 473 ms Sinus tachycardia Low voltage QRS Nondiagnostic inferior Q waves Poor R wave progression, consider anterior WI vs. lead placement vs. LVH Abnormal ECG No previous ECGs available Confirmed by Abraham Winkler ([id number]) on 10/14/2022 8:52:54 AM Referred By: REFERRED SELF Confirmed By:Abraham Winkler
[2022-10-14 09:03] LABS: Albumin Globulin Ratio 1.7 (0.9-2); Albumin Level 3.9 gm/dl (3.4-5.0); BUN Creatinine Ratio 10.5 (10-20); Calcium 8.5 mg/dl (8.6-10.3); Creatinine Clr Calc Pharmacy 153.4 ml/min; Est GFR (African American) 133.5 ml/min; Est GFR (Non-African American) 115.1 ml/min; Globulin 2.3 gm/dl (2.5-4.0); Potassium 3.6 mmol/L (3.5-5.1); Total Protein 6.2 gm/dl (6.0-8.3)
[2022-10-14] MEDS: THIAMINE HCL 100 MG TAB PO SCH (09:14)
[2022-10-14] MEDS: MULTIVITAMIN TAB PO SCH (09:14)
[2022-10-14] MEDS: FOLIC ACID 1 MG TAB PO SCH (09:14)
--- NOTE | 2022-10-14 10:14 | OB/GYN Consultation ---
Date of Consultation October 14, 2022 Assessment & Plan (1) Post-operative state: Continue medical management as ordered. No maintenance planner issues at this time to be concerned with History of Present Illness Reason for Consultation: recent tubal ligation Requesting Physician: DR. Ortega Attending Physician: Anil Farmer MD History of Present Illness 42 F [id number] s/p LTL at [facility] by Dr. Moser several weeks ago who presents to ER at [facility] with c/o dizziness and history of alcohol abuse. She presents with hyponatremia. Allergies Allergy/AdvReac Type Severity Reaction Status Date / Time No Known Allergies Allergy Unverified 10/13/22 19:25 Home Medications Medication Instructions Recorded Confirmed Type ibuprofen 200 mg tablet (Advil) 600 mg PO Q8 PRN Pain 10/13/22 10/13/22 History Patient History Social History Smoking Status: Former smoker Tobacco Type: Cigarettes Second Hand Exposure: No; Do You Dip or Chew Tobacco: No; Tobacco Cessation Education Requested by Patient: No Hx Alcohol Use: Yes Alcohol type: hard liquor Hx Substance Use: No Preferred Language: Romansh Heddler Required: No Beliefs That Will Affect Care: None Current Living Situation: Alone and Family Current Living Situation Comment: has 3 young daughters Other Information That Helps Us Care for You: No Feels Safe at Home: Yes Safety Concerns: Feels Safe At This Time Assistive Devices: None Review of Systems Review of Systems: All systems reviewed & are unremarkable except as noted in HPI & below Physical Exam Constitutional: WD/WN, vitals as above Gastrointestinal (Abdomen): Inspection/Auscultation: abdomen normal to inspection incisions well healed intact. Abdomen is soft and non-tender to palpation. no rebound, guarding or mass noted Musculoskeletal: Extremities: extremities normal to inspection Skin: no rashes, warm and dry Neurologic: patellar DTR's 2+ bilat, sensation intact Psychiatric: A+Ox3, euthymic affect Results & Data Vital Signs (Past 12 Hours) Vital Signs Temp Pulse Pulse Resp BP BP Pulse Ox 10/14/22 07:35 36.9 C 60 16 138/89 95 10/14/22 05:34 144/87 H 10/14/22 05:11 36.9 C 102 H 20 158/103 H 96 10/14/22 01:41 114 H 10/14/22 02:58 36.6 C 104 H 16 143/89 H 94 10/14/22 00:34 116 H 18 135/88 93 10/13/22 23:13 128 H 17 136/87 93 O2 Del Method 10/14/22 07:35 Room Air 10/14/22 05:34 10/14/22 05:11 Room Air 10/14/22 01:41 10/14/22 02:58 Room Air 10/14/22 00:34 Room Air 10/13/22 23:13 Room Air Laboratory Results neg Hc. 4+ ketonuria Diagnostic Findings CT shows no free air in abdomen. severe hepatic steatosis. no obstruction
[2022-10-14 10:16] LABS: Estimated Average Glucose 100 mg/dl; Hemoglobin A1C 5.1 % (4.5-5.6)
--- NOTE | 2022-10-14 10:45 | Consultation ---
done see consult note done previously Date of Consultation October 14, 2022 History of Present Illness Attending Physician: Anil Farmer MD Allergies Allergy/AdvReac Type Severity Reaction Status Date / Time No Known Allergies Allergy Unverified 10/13/22 19:25 Home Medications Medication Instructions Recorded Confirmed Type ibuprofen 200 mg tablet (Advil) 600 mg PO Q8 PRN Pain 10/13/22 10/13/22 History Patient History Social History Smoking Status: Former smoker Tobacco Type: Cigarettes Second Hand Exposure: No; Do You Dip or Chew Tobacco: No; Tobacco Cessation Education Requested by Patient: No Hx Alcohol Use: Yes Alcohol type: hard liquor Hx Substance Use: No Preferred Language: Montserratian Insurance Advisor Required: No Beliefs That Will Affect Care: None Current Living Situation: Alone and Family Current Living Situation Comment: has 3 young daughters Other Information That Helps Us Care for You: No Feels Safe at Home: Yes Safety Concerns: Feels Safe At This Time Assistive Devices: None Results & Data Vital Signs (Past 12 Hours) Vital Signs Temp Pulse Pulse Resp BP BP Pulse Ox 10/14/22 07:35 36.9 C 60 16 138/89 95 10/14/22 05:34 144/87 H 10/14/22 05:11 36.9 C 102 H 20 158/103 H 96 10/14/22 01:41 114 H 10/14/22 02:58 36.6 C 104 H 16 143/89 H 94 10/14/22 00:34 116 H 18 135/88 93 10/13/22 23:13 128 H 17 136/87 93 O2 Del Method 10/14/22 07:35 Room Air 10/14/22 05:34 10/14/22 05:11 Room Air 10/14/22 01:41 10/14/22 02:58 Room Air 10/14/22 00:34 Room Air 10/13/22 23:13 Room Air
[2022-10-14] MEDS ORDERED: MECLIZINE HCL 25 MG TAB PO PRN (12:16)
[2022-10-14] MEDS ORDERED: LORazepam 2 MG/1 ML VIAL IV PRN ×3 (14:07)
[2022-10-14] MEDS ORDERED: Ativan IV Alcohol Withdrawal--Active Protocol IV PRN (14:07)
[2022-10-14] MEDS ORDERED: FOLIC ACID 1 MG TAB PO SCH (14:15)
[2022-10-14] MEDS ORDERED: THIAMINE HCL 100 MG TAB PO SCH (14:15)
[2022-10-14] MEDS: LACTATED RINGER'S 1,000 ML IV SCH ×2 (14:36→22:17)
--- NOTE | 2022-10-14 15:43 | Hospitalist Progress Note ---
Date of Service October 14, 2022 Assessment & Plan (1) Dizziness: (2) Alcohol abuse with withdrawal: (3) High anion gap metabolic acidosis: (4) Hyponatremia: Plan 42-year-old female with intermittent alcohol intake presented to ED with dizziness and weakness for 1 day. Patient drinks 750 cc of tequila from Tuesday night to Tuesday morning and felt sick on Tuesday prompting ED visit. Dizziness-likely related to dehydration/orthostatic hypotension related to her alcohol abuse and poor oral intake. Orthostatics still positive. Echo unremarkable. Tele with intermittent sinus tachycardia. We will continue IVF increased to 150 cc/day. Continue orthostatics. Denied vertigo. [place]- Hallpike's were negative on bedside examination. No concerning signs or symptoms for posterior circulation pathology currently. Alcohol abuse with withdrawal-alcohol level elevated on presentation. Currently having some mild withdrawal symptoms although she declines withdrawal issues in the past. She denies drinking regularly. Continue JUNE protocol with as needed Ativan. Continue folate, thiamine, multivitamin. She was seen at PCP office 2 months ago for alcohol abuse and completed alcohol rehab last month. Mild lower abdominal pain status post elective laparoscopic bilateral gail pingectomy 2 weeks ago-seen by MARKETING EDITOR. No new recommendations Hyponatremia-mild, improving, on IVF. Recheck in a.m. Minimally elevated AST- NTD. Recheck in a.m AGMA- resolved with IVF. DVT prophylaxis-subcu Lovenox Disposition-continue IVF, orthostatic vitals, AWSS protocol. Disposition pending symptomatic improvement. PT OT crystal. Admission and Anticipated Discharge Date Admission Date: October 13, 2022 Subjective Patient was seen and examined at bedside. She feels slightly better but still with dizziness. Orthostatic still positive. States she had 750 cc of tequila 2 nights ago and did not eat or drink much yesterday. Denies any vertigo, hearing loss, numbness weakness tingling, dysarthria, diplopia. Denies any recent viral or flulike symptoms or sick contacts Review of Systems Review of Systems: All systems reviewed & are unremarkable except as noted in Subjective Physical Exam Physical Exam: General: Lying comfortably in bed, not in distress, on room air HEENT: EOMI, SANAZ, MMM Chest: Clear breath sounds bilaterally, no wheezes or crackles CVS: Regular rate and rhythm, normal heart sounds, no murmur Abdomen: Soft, non tender, not distended, normal bowel sounds Neuro: Awake, alert, oriented, conversing well, non focal Extremities: No cyanosis, clubbing or edema Results & Data Results & Data Vital Signs (Past 12 Hours) Vital Signs Temp Pulse Resp BP Pulse Ox O2 Del Method 10/14/22 14:49 36.7 C 115 H 18 158/94 H 97 Room Air 10/14/22 14:08 98 10/14/22 10:58 36.9 C 62 18 146/93 H 93 Room Air 10/14/22 07:35 36.9 C 60 16 138/89 95 Room Air 10/14/22 05:34 144/87 H 10/14/22 05:11 36.9 C 102 H 20 158/103 H 96 Room Air
[2022-10-15] MEDS: LACTATED RINGER'S 1,000 ML IV SCH ×3 (05:19→17:44)
[2022-10-15 07:45] LABS: Hematocrit (blood only) 34.9 % (37.0-47.0); Hemoglobin 12.4 g/dl (12.0-16.0); Mean Corpuscular Hgb Conc 35.5 g/dL (32.0-36.0); Mean Corpuscular Volume 92.8 fL (80.0-100.0); Mean Platelet Volume 10.9 fL (9.4-12.4); Platelet Count 108 K/uL (130-400); RDW Coefficient of Variation 11.9 % (11.5-14.5); RDW Standard Deviation 40.8 fL (36.4-46.3); Red Blood Count 3.76 M/uL (4.20-5.40); White Blood Count 4.42 K/ul (4.8-10.8)
[2022-10-15 07:55] LABS: Albumin Globulin Ratio 1.6 (0.9-2); Albumin Level 3.6 gm/dl (3.4-5.0); BUN Creatinine Ratio 11.6 (10-20); Bilirubin,Total 1.3 mg/dl (0.2-1.0); Calcium 8.5 mg/dl (8.6-10.3); Creatinine Clr Calc Pharmacy 202.3 ml/min; Est GFR (African American) 146.4 ml/min; Est GFR (Non-African American) 126.3 ml/min; Globulin 2.3 gm/dl (2.5-4.0); Magnesium 1.8 mg/dl (1.7-2.4); Phosphorus 2.2 mg/dl (2.5-4.9); Total Protein 5.9 gm/dl (6.0-8.3)
[2022-10-15] MEDS ORDERED: POT PHOSPHATE MONOBASIC W/ SOD TAB PO SCH (09:00)
[2022-10-15] MEDS ORDERED: POTASSIUM CHLORIDE CRTAB 20 MEQ TABCR PO SCH (09:00)
[2022-10-15] MEDS: FOLIC ACID 1 MG TAB PO SCH (10:19)
[2022-10-15] MEDS: MULTIVITAMIN TAB PO SCH (10:19)
[2022-10-15] MEDS: THIAMINE HCL 100 MG TAB PO SCH (10:19)
--- NOTE | 2022-10-15 12:11 | Hospitalist Progress Note ---
Date of Service October 15, 2022 Assessment & Plan (1) Dizziness: (2) Alcohol abuse with withdrawal: (3) High anion gap metabolic acidosis: (4) Hyponatremia: Plan 42-year-old female with intermittent alcohol intake presented to ED with dizziness and weakness for 1 day. Patient drinks 750 cc of tequila from Tuesday night to Tuesday morning and felt sick on Tuesday prompting ED visit. Alcohol abuse with withdrawal-alcohol level elevated on presentation. Currently having some mild withdrawal symptoms although she declines withdrawal issues in the past. She denies drinking regularly. Continue JUNE protocol with as needed Ativan. Continue folate, thiamine, multivitamin. She was seen at PCP office 2 months ago for alcohol abuse and completed alcohol rehab last year. Dizziness-likely related to dehydration/orthostatic hypotension related to her alcohol abuse and poor oral intake. Orthostatics still positive but improved. Echo unremarkable. Tele with intermittent sinus tachycardia. Continue IVF, continue orthostatic vitals. Denied vertigo. [place]-Hallpike's were negative on bedside examination. No concerning signs or symptoms for posterior circulation pathology currently. Mild lower abdominal pain status post elective laparoscopic bilateral salpingectomy 2 weeks ago-seen by SR. PRICING ANALYST. No new recommendations Hyponatremia-mild, improving, on IVF. Recheck in a.m. Minimally elevated AST- NTD. F/u as OP AGMA- resolved with IVF. Hypokalemia-repleted, recheck in am Hypophosphatemia- repleted, recheck in am DVT prophylaxis-subcu Lovenox Disposition-continue IVF, orthostatic vitals, AWSS protocol. Disposition pending symptomatic improvement. PT ELROY rojas. Admission and Anticipated Discharge Date Admission Date: October 13, 2022 Subjective Patient was seen and examined at bedside. She feels better and was able to ambulate to the bathroom. Her dizziness is improved but still does not feel completely back to normal yet. Appetite improved. Had good sleep overnight. Denies any chest pain, palpitation or shortness of breath nausea or vomiting Review of Systems Review of Systems: All systems reviewed & are unremarkable except as noted in Subjective Physical Exam Physical Exam: General: Lying comfortably in bed, not in distress, on room air HEENT: EOMI, FROYLAN, MMM Chest: Clear breath sounds bilaterally, no wheezes or crackles CVS: Tachycardic, normal heart sounds, no murmur Abdomen: Soft, non tender, not distended, normal bowel sounds Neuro: Awake, alert, oriented, conversing well, non focal Extremities: No cyanosis, clubbing or edema Results & Data Results & Data Vital Signs (Past 12 Hours) Vital Signs Temp Pulse Pulse Resp BP BP Pulse Ox 10/15/22 11:53 36.9 C 103 H 18 146/89 H 98 10/15/22 10:00 135 H 10/15/22 07:30 36.8 C 108 H 17 150/94 H 95 10/15/22 04:06 36.4 C L 130 H 18 138/95 97 O2 Del Method 10/15/22 11:53 Room Air 10/15/22 10:00 10/15/22 07:30 Room Air 10/15/22 04:06 Room Air Laboratory Results Short CBC 10/15/22 Range/Units 07:01 WBC 4.42 L (4.8-10.8) K/ul Hgb 12.4 (12.0-16.0) g/dl Hct 34.9 L (37.0-47.0) % Plt Count 108 L (130-400) K/uL BMP 10/15/22 07:01 Sodium 134 L Potassium 3.0 L Chloride 98 Carbon Dioxide 27 BUN 5 L Creatinine 0.43 L Glucose 111 H Calcium 8.5 L Liver Function 10/15/22 Range/Units 07:01 Total Bilirubin 1.3 H (0.2-1.0) mg/dl AST 47 H (13-39) U/L ALT 44 (7-52) U/L Alkaline Phosphatase 47 (34-104) U/L Albumin 3.6 (3.4-5.0) gm/dl Medications Administered Current Inpatient Medications Acetaminophen (Acetaminophen 325 Mg Tab) 325 mg PO Q6H PRN PRN Reason: Mild Pain/Fever Stop: 11/13/22 00:01 Last Admin: 10/14/22 21:01 Dose: 325 mg Folic Acid (Folic Acid 1 Mg Tab) 1 mg PO [facility] Stop: 11/13/22 08:59 Last Admin: 10/15/22 10:19 Dose: 1 mg Promethazine HCl 12.5 mg/ (Sodium Chloride) 50.5 mls @ 202 mls/hr IV Q6H PRN PRN Reason: Nausea And Vomiting Stop: 11/12/22 23:58 Lactated Ringer's (Lr) 1,000 mls @ 150 mls/hr IV .Q6H40M NAOMY Stop: 11/13/22 14:29 Last Admin: 10/15/22 05:19 Dose: 150 mls/hr Lorazepam (Lorazepam 2 Mg/1 Ml Vial) 1 mg IV UD PRN; Protocol PRN Reason: EtOH Withdrawal AWSS Score 6,7 Stop: 11/13/22 14:06 Lorazepam (Lorazepam 2 Mg/1 Ml Vial) 2 mg IV UD PRN; Protocol PRN Reason: EtOH Withdrawal AWSS Score 8,9 Stop: 11/13/22 14:06 Last Admin: 10/14/22 14:36 Dose: 2 mg Lorazepam (Lorazepam 2 Mg/1 Ml Vial) 3 mg IV ONCE PRN; Protocol PRN Reason: EtOH Withdrawal AWSS Score 10+ Meclizine HCl (Meclizine Hcl 25 Mg Tab) 25 mg PO TID PRN PRN Reason: Dizziness or Vertigo Stop: 11/12/22 23:58 Miscellaneous (Ativan Iv Alcohol Withdrawal--Active Protocol) 1 each IV UD PRN; Protocol PRN Reason: EtoH Withdrawal AWSS 6,7,8,9,10+ Stop: 11/13/22 14:06 Multivitamins (Multivitamin Tab) 1 tab PO QAM [facility] Stop: 11/13/22 08:59 Last Admin: 10/15/22 10:19 Dose: 1 tab Oxycodone HCl (Oxycodone Hcl Ir 5 Mg Tab (Immediate Release)) 5 mg PO Q4H PRN PRN Reason: Pain Stop: 10/27/22 23:58 Potassium Chloride (Potassium Chloride Crtab 20 Meq Tabcr) 40 meq PO BID [facility] Stop: 10/16/22 08:59 Last Admin: 10/15/22 10:18 Dose: 40 meq Potassium Phosphate (Pot Phosphate Monobasic W/ Sod Tab) 2 tab PO QID [facility] Stop: 10/16/22 08:59 Last Admin: 10/15/22 10:18 Dose: 2 tab Thiamine HCl (Thiamine Hcl 100 Mg Tab) 100 mg PO QAM [facility] Stop: 11/13/22 08:59 Last Admin: 10/15/22 10:19 Dose: 100 mg
[2022-10-15] MEDS ORDERED: POTASSIUM PHOS 3 MMOL/1 ML INFUSION IV SCH (12:30)
[2022-10-15] MEDS ORDERED: POTASSIUM PHOSPHATE 15 MMOL in SODIUM CHLORIDE 0.9% 250 ML IV ONE (12:45)
[2022-10-15] MEDS: POTASSIUM CHLORIDE 20 MEQ/15 ML UDC PO SCH ×2 (13:39→21:40)
[2022-10-16] MEDS: LACTATED RINGER'S 1,000 ML IV SCH ×2 (01:51→09:23)
[2022-10-16 07:45] LABS: BUN Creatinine Ratio 7.8 (10-20); Calcium 9.2 mg/dl (8.6-10.3); Creatinine Clr Calc Pharmacy 170.4 ml/min; Est GFR (African American) 138.4 ml/min; Est GFR (Non-African American) 119.4 ml/min; Magnesium 1.8 mg/dl (1.7-2.4); Phosphorus 3.3 mg/dl (2.5-4.9); Potassium 3.7 mmol/L (3.5-5.1)
[2022-10-16] MEDS: MULTIVITAMIN TAB PO SCH (09:22)
[2022-10-16] MEDS: FOLIC ACID 1 MG TAB PO SCH (09:22)
[2022-10-16] MEDS: THIAMINE HCL 100 MG TAB PO SCH (09:22)
[2022-10-16] MEDS: POTASSIUM CHLORIDE 20 MEQ/15 ML UDC PO SCH (09:23)
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
--- NOTE | 2022-10-16 12:27 | Electrocardiogram Report ---
Test Reason : Blood Pressure : / mmHG Vent. Rate : 112 BPM Atrial Rate : 112 BPM P-R Int : 128 ms QRS Dur : 080 ms QT Int : 356 ms P-R-T Axes : 038 -13 049 degrees QTc Int : 486 ms Sinus tachycardia Cannot rule out Inferior infarct (cited on or before 14-OCT-2022) Nonspecific T wave abnormality Prolonged QT Abnormal ECG When compared with ECG of 13-OCT-2022 16:50, Questionable change in QRS axis Confirmed by Donato Mon ([id number]) on 10/16/2022 12:27:40 PM Referred By: REFERRED SELF Confirmed By:Donato Mon
== END 2022-10-16 16:03 | disposition home or self-care (01) | DRG 897 ==
LOC: ED 16:45 → 2N 23:56

== ENCOUNTER 2024-08-22 13:08 | Inpatient (IN) ==
[2024-08-22 13:37] LABS: Basophils # (auto) 0.09 K/uL (0.00-0.20); Basophils % (auto) 0.8 %; Eosinophils # (auto) 0.01 K/uL (0.00-0.50); Eosinophils % (auto) 0.1 %; Hematocrit (blood only) 40.5 % (37.0-47.0); Hemoglobin 14.2 g/dl (12.0-16.0); Immature Granulocytes # (auto) 0.03 K/uL (0.01-0.20); Immature Granulocytes % (auto) 0.3 %; Lymphocytes # (auto) 2.43 K/uL (1.20-3.40); Lymphocytes % (auto) 21.8 %; Mean Corpuscular Hemoglobin 31.9 pg (25.0-34.0); Mean Corpuscular Hgb Conc 35.1 g/dL (32.0-36.0); Monocytes # (auto) 0.49 K/uL (0.11-0.59); Monocytes % (auto) 4.4 %; Neutrophils # (auto) 8.11 K/uL (1.40-6.50); Neutrophils % (auto) 72.6 %; Platelet Count 353 K/uL (130-400); RDW Coefficient of Variation 14.2 % (11.5-14.5); RDW Standard Deviation 47.6 fL (36.4-46.3); Red Blood Count 4.45 M/uL (4.20-5.40); White Blood Count 11.16 K/ul (4.8-10.8)
--- NOTE | 2024-08-22 13:39 | XRay Report ---
XR chest 1V portable CLINICAL HISTORY: Chest pain, nonspecific COMPARISON STUDY: 11/02/2023 FINDINGS: Heart size and pulmonary vasculature are normal. No effusion, consolidation, or pneumothora x. IMPRESSION: No acute findings. ACT 112: Negative or not required by law. Electronically signed by: Miles Velásquez M.D. 08/22/2024 1:37 PM
[2024-08-22 14:09] LABS: INR 0.9 (0.9-1.1); Partial Thromboplastin Time 26 Seconds (21-31); Prothrombin Time 10.3 Seconds (9.0-12.0)
[2024-08-22 14:17] LABS: Alanine Aminotransferase 16 U/L (7-52); Albumin Globulin Ratio 1.5 (0.9-2); Albumin Level 4.7 gm/dl (3.4-5.0); Alkaline Phosphatase 71 U/L (34-104); Anion Gap 18 (3-11); Aspartate Aminotransferase 24 U/L (13-39); BUN Creatinine Ratio 11.8 (10-20); Bilirubin,Total 1.1 mg/dl (0.2-1.0); Blood Urea Nitrogen 8 mg/dl (6-23); Carbon Dioxide 20 mmol/L (21-32); Chloride 101 mmol/L (98-107); Creatinine Clr Calc Pharmacy 123.8 ml/min; Globulin 3.1 gm/dl (2.5-4.0); Glucose 84 mg/dl (70-99(Fasting)); Potassium 3.7 mmol/L (3.5-5.1); Sodium 139 mmol/L (136-145); Total Protein 7.8 gm/dl (6.0-8.3)
[2024-08-22 14:23] LABS: Troponin I High Sensitivity < 2.3 pg/ml (0-14)
[2024-08-22] MEDS: SODIUM CHLORIDE 0.9% 1,000 ML IV SCH ×2 (14:56→23:19)
[2024-08-22] MEDS ORDERED: PANTOPRAZOLE BOLUS/DRIP IV STA (15:04)
--- NOTE | 2024-08-22 15:12 | XRay Report ---
XR chest 1V portable CLINICAL HISTORY: fall COMPARISON STUDY: 08/22/2024 FINDINGS: Heart size and pulmonary vasculature are normal. No effusion, consolidation, or pneumothora x. IMPRESSION: No acute findings. ACT 112: Negative or not required by law. Electronically signed by: Miles Velásquez M.D. 08/22/2024 3:10 PM
[2024-08-22] MEDS: OPTIRAY 320 100ml IV ONE (15:19)
--- NOTE | 2024-08-22 15:33 | CT Scan Report ---
ABDOMEN AND PELVIS CT WITH IV CONTRAST CT DOSE: 2815.58 mGy.cm HISTORY: Gi bleed TECHNIQUE: Multiaxial CT images of the abdomen and pelvis were performed following the IV administrat ion of 90 cc of Optiray, A dose lowering technique was utilized adhering to the principles of ALARA. COMPARISON STUDY: 02/04/2024 FINDINGS: ABDOMEN: There is a small hiatal hernia. There is mild fatty liver. Otherwise the liver, gallbladder, spleen, pancreas, and adrenal glands are unremarkable. Kidneys show no hydronephrosis or calculi. No abdominal aortic aneurysm. Pelvis: Uterus and adnexa are grossly unremarkable. Urinary bladder is decompressed. There is trace o f pelvic free fluid, likely physiologic. There is mild sigmoid diverticulosis. No acute diverticuliti s. There is minimal retained stool. Normal appendix. No bowel inflammation or obstruction. No free fl uid, free air, or abscess. No enlarged adenopathy. Osseous structures: No acute osseous findings. IMPRESSION: No acute findings. ACT 112: Negative or not required by law. The above report was generated using voice recognition software. It may contain grammatical, syntax o r spelling errors. Electronically signed by: Miles Velásquez M.D. 08/22/2024 3:31 PM
--- NOTE | 2024-08-22 15:36 | CT Scan Report ---
CT head/brain wo con CLINICAL HISTORY: trauma. TECHNIQUE: Multiple axial CT images of the head were obtained without contrast. A dose lowering tech nique was utilized adhering to the principles of ALARA. COMPARISON: 11/22/2023 FINDINGS: No intracranial hemorrhage seen. No mass effect, midline shift, or hydrocephalus. No skull fracture seen. Visualized paranasal sinuses and mastoid air cells are clear. IMPRESSION: No acute findings. ACT 112: Negative or not required by law. The above report was generated using voice recognition software. It may contain grammatical, syntax o r spelling errors. Electronically signed by: Miles Velásquez M.D. 08/22/2024 3:35 PM
--- NOTE | 2024-08-22 15:39 | CT Scan Report ---
CT cervical spine wo con CLINICAL HISTORY: trauma. COMPARISON: 11/22/2023 TECHNIQUE: Multiple axial CT images of the cervical spine were obtained without contrast. A dose low ering technique was utilized adhering to the principles of ALARA. FINDINGS: Stable minimal degenerative changes at the lower cervical spine. No fracture or subluxation seen. IMPRESSION: No cervical spine fracture seen. ACT 112: Negative or not required by law. The above report was generated using voice recognition software. It may contain grammatical, syntax o r spelling errors. Electronically signed by: Miles Velásquez M.D. 08/22/2024 3:37 PM
--- NOTE | 2024-08-22 15:48 | CT Scan Report ---
MAXILLOFACIAL CT WITHOUT CONTRAST CLINICAL HISTORY: Trauma. COMPARISON STUDY: Facial bone CT November 22, 2023. TECHNIQUE: A maxillofacial CT was performed without IV contrast. Coronal and sagittal reformats were viewed. Automated exposure control was utilized for the study. A dose lowering technique was utiliz ed adhering to the principles of ALARA. FINDINGS: A 2.2 cm midline submental hyperdense focus is suggestive of a contusion. No facial fractur es are present. Orbital floors are intact. Alignment of the temporomandibular joints is anatomic. The globes are intact. There is no retrobulbar hematoma. IMPRESSION: No acute facial fracture. Inferior facial contusion. ACT 112: Negative or not required by law. Electronically signed by: Leonid Sewell M.D. 08/22/2024 3:46 PM
[2024-08-22 15:55] LABS: Magnesium 1.7 mg/dl (1.7-2.4)
[2024-08-22] MEDS: PANTOprazole 80 MG in DEXTROSE 5% 100 ML IV ONE (15:55)
[2024-08-22 16:00] LABS: Lipase 9 U/L (11-82)
[2024-08-22] MEDS: LORazepam 2 MG/1 ML VIAL IV STA (16:10)
[2024-08-22] MEDS: FAMOTIDINE 20MG IV PUSH 20 MG/5 ML SYR IV STA (16:15)
[2024-08-22] MEDS: LACTATED RINGER'S 1,000 ML IV ONE (17:14)
[2024-08-22] MEDS: THIAMINE HCL 100 MG in SYRINGE 9 ML IV STA (17:41)
[2024-08-22] MEDS: PANTOprazole 40 MG in DEXTROSE 5% MINI-B 100 ML IV SCH (17:45)
--- NOTE | 2024-08-22 18:07 | Emergency Department Note ---
Impression & Plan GI bleed, Syncope, Alcohol abuse, Contusion of face, Contusion of multiple sites ED Provider Note ED Provider Note NAME: DAX BAUM AGE:44 SEX: Female : 1980 ARRIVES VIA: EMS INFORMANT: Patient ED PROVIDER(s): Rina Dee DO CHIEF COMPLAINT: Syncope, bleeding HPI: This is a 44-year-old female who presents emergency department due to concern for syncopal episode yesterday. Patient remembers being in her house and feeling lightheaded and dizzy. She states the next thing she remembers she woke up on the couch. She believes she may have hit an end table when she syncopized and fell. Patient states she also noticed blood mixed with her stool yesterday. She states today she had multiple episodes of bright red blood with her bowel movements. She states her bowel movements have fluctuated between loose and watery and she has had blood with each episode. She states initially it was bright red blood and then seem to be more maroon. She states she did have a prior colonoscopy earlier this year and had 1 polyp removed. She states no other abnormalities were noted. She denies any vomiting but states she has been nauseated. She denies any overt abdominal pain. Patient states she does have pain at the chin from what she believes was an injury sustained in the syncopal event yesterday. She denies headaches, dizziness, chest pain, or shortness of breath. She denies any use of NSAIDs, antiplatelet or anticoagulation medications. PAST MEDICAL HISTORY:See Below PAST SURGICAL HISTORY:See Below FAMILY HISTORY:See Below SOCIAL HISTORY:See Below HOME MEDICATIONS:See Below ALLERGIES:See Below VITALS:See Below PHYSICAL EXAMINATION: GENERAL: alert, well appearing, well nourished, no distress, non-toxic HEAD/FACE: nc, obvious edema and ecchymosis to the chin and submental region, no other bony tenderness to the face or midface instability EYE EXAM: normal conjunctiva, PERRL and EOM's grossly intact OROPHARYNX: no exudate, no erythema, lips, buccal mucosa, and tongue normal and mucous membranes are mildly dry, no obvious dental injury, no blood in the posterior oropharynx NECK: supple, no nuchal rigidity, no adenopathy, non-tender, FROM LUNGS: Clear to auscultation. Normal chest wall mechanics, no w/r/r HEART: no murmurs, S1 normal and S2 normal ABDOMEN: abdomen soft, non-tender, normo-active bowel sounds, no masses, no rebound or guarding. SKIN: no rashes, petechiae, orbruising UPPER EXTREMITIES: upper extremities are grossly normal. FROM, nml pulses b/l. LOWER EXTREMITIES: No pitting edema. FROM, nml pulses b/l. Multiple contusions noted with ecchymosis in various stages of healing, no obvious deformities, no joint effusions. Patient mitts to subjective bilateral lower extremity paresthesias. NEURO EXAM: Normal sensorium, cranial nerves II-XII grossly intact, normal speech, no facial droop,nogross weakness of arms, no gross weakness of legs. Gross sensation intact. No ataxia. Mildly tremulous. Vital Signs: reviewed and remarkable Differential Diagnosis: vasovagal event, infection, hypoglycemia, electrolyte abnormalities, toxidrome, substance abuse, dysrhythmia, ACS, as well as others were entertained. MEDICAL DECISION MAKING: This is a 44-year-old female who presents emergency department due to concern for syncopal episode yesterday. Patient with obvious facial trauma and contusions in various stages of healing on exam. She had a nonfocal neuroexam and was afebrile and hemodynamically stable. Labs drawn and sent, IV established, EKG and x-ray performed at bedside interpreted by me and patient monitored on telemetry. Patient sent for additional CT imaging. Patient's labs reassuring, alcohol positive although at a low level, despite patient stating she had not had any alcoholic beverage in at least 2 days. On review of EMR patient does have a history of alcohol use disorder. When discussed at bedside patient states she had not had any alcohol in 2 days although does drink frequently. She denies any history of significant alcohol withdrawal or hospitalization for any alcohol-related complications. Patient states she does not feel that was necessarily the cause of the syncopal event. Patient denies any prior history of GI bleed. I was able to review the prior EGD from earlier this year. Patient started on Protonix bolus and drip. H&H stable, BUN not significantly elevated, LFTs reassuring, and no evidence of coagulopathy. Patient with recurrent episode of bright red blood per rectum here. Despite reassuring labs, I feel patient at higher risk given alcohol use and recurrent episodes of bright red blood per rectum. I do not suspect a brisk upper GI bleed or variceal bleed at this time. Patient remained hemodynamically stable while in the emergency department. Patient was given a dose of IV Ativan in addition to IV fluids and IV Pepcid. Patient did feel improved following medications here. We did discuss the risks of her complaints as well as her ongoing alcohol use. Case discussed with the hospitalist team for additional evaluation and management. Consultation(s): 1855: Discussed with [facility] hospitalist team, for additional evaluation and management. ER Treatment Provided: See below Diagnostics Interpreted By Me: -ECG: Sinus tachycardia 123, normal axis, normal intervals, no acute ST/T wave changes -Cardiac Monitoring: An order was placed for continuous cardiac monitoring. The monitor shows a rate of 103 with sinus tachycardia rhythm. -Laboratory studies: As stated above and show below. -Imaging studies: X-ray Chest: A single view study of the chest was reviewed and was negative for cardiomegaly, focal infiltrate, effusion, pulmonary edema, or wide mediastinum. Triage Nursing Note Reviewed Prior/Outside Records Reviewed -EGD from April 2024 reviewed Critical Care: Critical care of [time] min performed to assess and manage high likelihood of life-threatening GI bleed, involving labs and imaging performed with assessment to evaluate GI bleed and syncope diagnosis with frequent reassessment. This time includes bedside time, treatment discussions with patient/family/consultants, documentation time and excludes procedure time. Past Med/Surg History Problem List (Updated 08/23/24 @ 18:19 by Rina Dee DO) Contusion of multiple sites (Acute) Contusion of face (Acute) Alcohol abuse (Acute) Syncope (Acute) GI bleed (Acute) Medical History (Updated 08/23/24 @ 18:19 by Rina Dee DO) Diverticulitis Alcohol use disorder Surgical History (Updated 08/22/24 @ 19:47 by Lena West PA-C) History of salpingectomy History of tonsillectomy and adenoidectomy History of colonoscopy Social History Smoking Status: Never smoker Tobacco Type: Cigarettes Second Hand Exposure: No; Do You Dip or Chew Tobacco: No; Tobacco Cessation Education Requested by Patient: No Hx Alcohol Use: Yes Alcohol type: beer and hard liquor Hx Substance Use: No Preferred Language: Grenadian Communication Ability: Effective School Curriculum Developer Required: No Beliefs That Will Affect Care: None Current Living Situation: Family Current Living Situation Comment: has 3 young daughters Other Information That Helps Us Care for You: No Feels Safe at Home: Yes Safety Concerns: Feels Safe At This Time Assistive Devices: None Allergies Allergies Allergy/AdvReac Type Severity Reaction Status Date / Time No Known Allergies Allergy Verified 11/23/23 09:54 Home Meds Home Medications Medication Instructions Recorded Confirmed cholecalciferol (vitamin D3) 25 25 mcg PO DAILY 11/22/23 08/22/24 mcg (1,000 unit) capsule (Vitamin D3) cyanocobalamin (vitamin B-12) 1,000 mcg PO DAILY 11/22/23 08/22/24 1,000 mcg tablet (Vitamin B-12) fluoxetine 10 mg capsule 10 mg PO DAILY 11/22/23 08/22/24 thiamine HCl (vitamin B1) 100 mg 100 mg PO QAM 11/22/23 08/22/24 tablet folic acid 1 mg tablet 1 mg PO DAILY 08/22/24 08/22/24 omeprazole 20 mg capsule,delayed 20 mg PO DAILY 08/22/24 08/22/24 release Results & Data (ED) Vital Signs Vital Signs - 24 hr 08/22/24 18:47 Pulse Rate [Apical] 102 H Pulse Rhythm [Apical] Regular Pulse Strength [Apical] Normal Respiratory Rate 21 Respiratory Effort / Characteristics Non-Labored Spontaneous Respiratory Depth Normal Respiratory Pattern Regular Blood Pressure [Right Arm] 157/100 H Blood Pressure Mean [Right Arm] 119 Blood Pressure Position [Right Arm] Lying Pulse Oximetry 99 Oxygen Delivery Method Room Air Laboratory Data 08/23/24 15:35 08/23/24 06:48 Lab Results 08/22/24 08/22/24 Range/Units 13:21 15:06 WBC 11.16 H (4.8-10.8) K/ul RBC 4.45 (4.20-5.40) M/uL Hgb 14.2 (12.0-16.0) g/dl Hct 40.5 (37.0-47.0) % MCV 91.0 (80.0-100.0) fL MCH 31.9 (25.0-34.0) pg MCHC 35.1 (32.0-36.0) g/dL RDW Std Deviation 47.6 H (36.4-46.3) fL RDW Coeff of Andree 14.2 (11.5-14.5) % Plt Count 353 (130-400) K/uL MPV 9.0 L (9.4-12.4) fL Immature Gran % (Auto) 0.3 % Neut % (Auto) 72.6 % Lymph % (Auto) 21.8 % [place] % (Auto) 4.4 % Eos % (Auto) 0.1 % Baso % (Auto) 0.8 % Neut # (Auto) 8.11 H (1.40-6.50) K/uL Lymph # (Auto) 2.43 (1.20-3.40) K/uL [place] # (Auto) 0.49 (0.11-0.59) K/uL Eos # (Auto) 0.01 (0.00-0.50) K/uL Baso # (Auto) 0.09 (0.00-0.20) K/uL Immature Gran # (Auto) 0.03 (0.01-0.20) K/uL PT 10.3 (9.0-12.0) Seconds INR 0.9 (0.9-1.1) APTT 26 (21-31) Seconds PTT Ratio 1.0 Sodium 139 (136-145) mmol/L Potassium 3.7 (3.5-5.1) mmol/L Chloride 101 (98-107) mmol/L Carbon Dioxide 20 L (21-32) mmol/L Anion Gap 18 H (3-11) BUN 8 (6-23) mg/dl Creatinine 0.68 (0.6-1.2) mg/dl Est Cr Clr Drug Dosing 123.8 ml/min eGFR 110.75 BUN/Creatinine Ratio 11.8 (10-20) Glucose 84 (70-99(Fasting)) mg/dl Calcium 9.0 (8.6-10.3) mg/dl Magnesium 1.7 (1.7-2.4) mg/dl Total Bilirubin 1.1 H (0.2-1.0) mg/dl AST 24 (13-39) U/L ALT 16 (7-52) U/L Alkaline Phosphatase 71 (34-104) U/L Troponin I High Sens < 2.3 (0-14) pg/ml Total Protein 7.8 (6.0-8.3) gm/dl Albumin 4.7 (3.4-5.0) gm/dl Globulin 3.1 (2.5-4.0) gm/dl Albumin/Globulin Ratio 1.5 (0.9-2) Lipase 9 L (11-82) U/L TSH 1.500 (0.300-4.500) uIu/ml Ethyl Alcohol mg/dL 41.1 H (<10.0) mg/dl Administered Medications Acetaminophen (Acetaminophen 325 Mg Tab) 650 mg PO Q4H PRN PRN Reason: Pain or Fever Stop: 09/21/24 22:29 Last Admin: 08/23/24 10:31 Dose: 650 mg Documented By: ARTUR Fluoxetine HCl (Fluoxetine Hcl 10 Mg Cap) 10 mg PO DAILY [facility] Stop: 09/22/24 08:59 Last Admin: 08/23/24 10:31 Dose: 10 mg Documented By: ARTUR Folic Acid (Folic Acid 1 Mg Tab) 1 mg PO [facility] Stop: 09/22/24 08:59 Last Admin: 08/23/24 10:31 Dose: 1 mg Documented By: ARTUR Thiamine HCl 100 mg/ Syringe 10 mls @ 2 mls/min IV [facility] Stop: 09/22/24 08:59 Last Admin: 08/23/24 07:46 Dose: 2 mls/min Documented By: ARTUR Morphine Sulfate (Morphine Sulfate 4 Mg/Ml 1 Ml Carp\Vial) 3 mg IV Q4H PRN PRN Reason: Mod-Sev Pain (Scale 4-10) Stop: 09/05/24 23:28 Last Admin: 08/23/24 16:53 Dose: 3 mg Documented By: Admin: 08/22/24 23:48 Dose: 3 mg Documented By: GUS Multivitamins (Multivitamin Tab) 1 tab PO [facility] Stop: 09/22/24 08:59 Last Admin: 08/23/24 10:31 Dose: 1 tab Documented By: ARTUR Ondansetron HCl (Ondansetron Inj 2 Mg/Ml 2 Ml Vial) 4 mg IV Q6H PRN PRN Reason: Nausea Stop: 09/21/24 22:29 Last Admin: 08/23/24 07:45 Dose: 4 mg Documented By: Admin: 08/22/24 23:54 Dose: 4 mg Documented By: GUS Polyethylene Glycol (Polyethylene (Miralax) 17 Gm Pack) 17 gm PO DAILY NAOMY Stop: 09/22/24 12:59 Last Admin: 08/23/24 13:28 Dose: 17 gm Documented By: ARTUR Discontinued Medications Bisacodyl (Bisacodyl 5 Mg Tabec) 5 mg PO NOW ONE Stop: 08/23/24 12:54 Last Admin: 08/23/24 13:28 Dose: 5 mg Documented By: ARTUR Gabapentin (Gabapentin 600 Mg Tab) 1,200 mg PO NOW ONE Stop: 08/22/24 22:31 Last Admin: 08/22/24 23:15 Dose: 1,200 mg Documented By: GUS Gabapentin (Gabapentin 600 Mg Tab) 600 mg PO Q6H NAOMY Stop: 08/23/24 12:01 Last Admin: 08/23/24 12:47 Dose: 600 mg Documented By: Admin: 08/23/24 06:16 Dose: 600 mg Documented By: GUS Sodium Chloride (Nss) 1,000 mls @ 125 mls/hr IV .Q8H NAOMY Stop: 08/25/24 14:44 Last Infusion: 08/22/24 23:05 Dose: Infused Documented By: Admin: 08/22/24 21:51 Dose: 125 mls/hr Documented By: Infusion: 08/22/24 21:49 Dose: Infused Documented By: Admin: 08/22/24 14:56 Dose: 125 mls/hr Documented By: CC Famotidine (Pepcid 20mg Iv Push) 20 mg in 5 mls @ 2.5 mls/min IV NOW STA Stop: 08/22/24 15:05 Last Admin: 08/22/24 16:15 Dose: 2.5 mls/min Documented By: MPD Pantoprazole Sodium 40 mg/ (Dextrose) 100 mls @ 20 mls/hr IV Q5H NAOMY Stop: 09/21/24 15:29 Last Infusion: 08/22/24 23:04 Dose: Infused Documented By: Admin: 08/22/24 21:49 Dose: 8 mg/hr, 20 mls/hr Documented By: Infusion: 08/22/24 21:48 Dose: Infused Documented By: Admin: 08/22/24 17:45 Dose: 8 mg/hr, 20 mls/hr Documented By: KITTY Pantoprazole Sodium 80 mg/ (Dextrose) 120 mls @ 480 mls/hr IV NOW ONE Stop: 08/22/24 15:18 Last Infusion: 08/22/24 16:35 Dose: Infused Documented By: Admin: 08/22/24 15:55 Dose: 480 mls/hr Documented By: KITTY Lactated Ringer's (Lr) 1,000 mls @ 999 mls/hr IV .Q1H1M ONE Stop: 08/22/24 17:30 Last Infusion: 08/22/24 18:48 Dose: Infused Documented By: Admin: 08/22/24 17:14 Dose: 999 mls/hr Documented By: KITTY Thiamine HCl 100 mg/ Syringe 10 mls @ 2 mls/min IV NOW STA Stop: 08/22/24 16:34 Last Admin: 08/22/24 17:41 Dose: 2 mls/min Documented By: KITTY Pantoprazole Sodium (Protonix) 40 mg in 10 mls @ 5 mls/min IV BID NAOMY Stop: 09/21/24 22:29 Last Admin: 08/23/24 07:45 Dose: 5 mls/min Documented By: Admin: 08/22/24 23:15 Dose: 5 mls/min Documented By: GUS Sodium Chloride (Nss) 1,000 mls @ 125 mls/hr IV .Q8H NAOMY Stop: 08/23/24 08:04 Last Infusion: 08/23/24 07:26 Dose: Infused Documented By: Admin: 08/22/24 23:19 Dose: 125 mls/hr Documented By: GUS Ioversol (Optiray 320 100ml) 93 ml IV ONCE ONE Stop: 08/22/24 15:19 Last Admin: 08/22/24 15:19 Dose: 93 ml Documented By: MALLORY Lorazepam (Lorazepam 2 Mg/1 Ml Vial) 0.5 mg IV NOW STA Stop: 08/22/24 15:05 Last Admin: 08/22/24 16:10 Dose: 0.5 mg Documented By: KITTY Imaging Data Radiologist's Impression: Chest X-Ray 08/22/24 13:15 XR chest 1V portable CLINICAL HISTORY: Chest pain, nonspecific COMPARISON STUDY: 11/02/2023 FINDINGS: Heart size and pulmonary vasculature are normal. No effusion, consolidation, or pneumothorax. IMPRESSION: No acute findings. ACT 112: Negative or not required by law. Electronically signed by: Miles Velásquez M.D. 08/22/2024 1:37 PM Abdomen/Pelvis CT 08/22/24 14:[address] WITH IV CONTRAST CT DOSE: 2815.58 mGy.cm HISTORY: Gi bleed TECHNIQUE: Multiaxial CT images of the abdomen and pelvis were performed following the IV administration of 90 cc of Optiray, A dose lowering technique was utilized adhering to the principles of ALARA. COMPARISON STUDY: 02/04/2024 FINDINGS: ABDOMEN: There is a small hiatal hernia. There is mild fatty liver. Otherwise the liver, gallbladder, spleen, pancreas, and adrenal glands are unremarkable. Kidneys show no hydronephrosis or calculi. No abdominal aortic aneurysm. Pelvis: Uterus and adnexa are grossly unremarkable. Urinary bladder is decompressed. There is trace of pelvic free fluid, likely physiologic. There is mild sigmoid diverticulosis. No acute diverticulitis. There is minimal retained stool. Normal appendix. No bowel inflammation or obstruction. No free fluid, free air, or abscess. No enlarged adenopathy. Osseous structures: No acute osseous findings. IMPRESSION: No acute findings. ACT 112: Negative or not required by law. The above report was generated using voice recognition software. It may contain grammatical, syntax or spelling errors. Electronically signed by: Miles Velásquez M.D. 08/22/2024 3:[address] 08/22/24 14:37 CT cervical spine wo con CLINICAL HISTORY: trauma. COMPARISON: 11/22/2023 TECHNIQUE: Multiple axial CT images of the cervical spine were obtained without contrast. A dose lowering technique was utilized adhering to the principles of ALARA. FINDINGS: Stable minimal degenerative changes at the lower cervical spine. No fracture or subluxation seen. IMPRESSION: No cervical spine fracture seen. ACT 112: Negative or not required by law. The above report was generated using voice recognition software. It may contain grammatical, syntax or spelling errors. Electronically signed by: Miles Velásquez M.D. 08/22/2024 3:37 PM Chest X-Ray 08/22/24 14:37 XR chest 1V portable CLINICAL HISTORY: fall COMPARISON STUDY: 08/22/2024 FINDINGS: Heart size and pulmonary vasculature are normal. No effusion, consolidation, or pneumothorax. IMPRESSION: No acute findings. ACT 112: Negative or not required by law. Electronically signed by: Miles Velásquez M.D. 08/22/2024 3:[address] 08/22/24 14:[address] WITHOUT CONTRAST CLINICAL HISTORY: Trauma. COMPARISON STUDY: Facial bone CT November 22, 2023. TECHNIQUE: A maxillofacial CT was performed without IV contrast. Coronal and sagittal reformats were viewed. Automated exposure control was utilized for the study. A dose lowering technique was utilized adhering to the principles of ALARA. FINDINGS: A 2.2 cm midline submental hyperdense focus is suggestive of a contusion. No facial fractures are present. Orbital floors are intact. Alignment of the temporomandibular joints is anatomic. The globes are intact. There is no retrobulbar hematoma. IMPRESSION: No acute facial fracture. Inferior facial contusion. ACT 112: Negative or not required by law. Electronically signed by: Leonid Sewell M.D. 08/22/2024 3:[address] 08/22/24 14:37 CT head/brain wo con CLINICAL HISTORY: trauma. TECHNIQUE: Multiple axial CT images of the head were obtained without contrast. A dose lowering technique was utilized adhering to the principles of ALARA. COMPARISON: 11/22/2023 FINDINGS: No intracranial hemorrhage seen. No mass effect, midline shift, or hydrocephalus. No skull fracture seen. Visualized paranasal sinuses and mastoid air cells are clear. IMPRESSION: No acute findings. ACT 112: Negative or not required by law. The above report was generated using voice recognition software. It may contain grammatical, syntax or spelling errors. Electronically signed by: Miles Velásquez M.D. 08/22/2024 3:35 PM Discharge Plan Visit Data Chief Complaint: Fall Stated Complaint: BLOOD IN STOOL, FALL, HIT CHIN, LT NUMB ED Provider: Rina Dee Discharge Problem: GI bleed, Syncope, Alcohol abuse, Contusion of face, Contusion of multiple sites Patient Disposition: Admitted As Inpatient Condition: Fair Discharge Instructions Interventions: ED Discharge Assessment Last Done: 08/22/24 22:00
--- NOTE | 2024-08-22 19:02 | History & Physical Report ---
Date of Service August 22, 2024 Assessment & Plan (1) Syncope: Plan: #Face Contusion Patient is 44 year old female with PMH alcohol abuse, GERD, depression presented to ER with c/o syncopal episode yesterday Reports walking and felt dizzy and fell and hit chin and face on table and thinks passed out yesterday and only other thing she remembers is waking up this morning and calling her mom for help anything else. CT Head: no acute intracranial abnormality CT C-Spine: no acute fracture Face CT: No acute facial fracture. Inferior facial contusion. CXR: no consolidation EKG sinus tachycardia, rate 123 per my interpretation DDx: ETOH intoxication, seizure, arrhythmia Monitor on telemetry Echo CBC, CMP in am (2) GI bleed: Plan: Reports bright red rectal bleeding x 2 days, lower abdominal discomfort CT Abd/pelvis: No acute findings H/H: In ER started on Protonix drip Will change to Protonix IV twice daily. Suspect lower GI bleeding with reported bright red rectal bleeding with BMs Allow liquid diet currently N.p.o. midnight Monitor H&H GI consult (3) Alcohol withdrawal: Plan: Reported drinking 6-7 shots vodka daily. reports last drink 2 days ago In ER ETOH: 42 In ER given Ativan 0.5mg ETOH withdrawal protocol with gabapentin and Ativan ETOH cessation encouraged Daily multivitamin, folic acid, thiamine supplement #Depression Continue fluoxetine DVT Prophylaxis SCDs Admit telemetry Full Code as per discussion with pt Follows with Dr Dunn for routine care Pt was seen and care coordinated with Dr Epps. See addendum I spent a total of 60 minutes reviewing notes, outpatient records, labs, medication, coordinating, documenting and providing care for this patient excluding time spent in the performance of separately billed services and excluding time spent by another provider/QHP. History of Present Illness Chief Complaint: rectal bleeding Primary Care Provider: Stephanie Dunn MD Patient is 44 year old female with PMH alcohol abuse, GERD, depression presented to ER with c/o rectal bleeding x 2 days. Patient reports bright red blood per rectum x 2 days. Also c/o lower abdominal pain described as "squeezing" since yesterday. States yesterday morning she attempted to take her morning medications and vomited. States vomited yesterday and today. Denies hematemesis. States yesterday was walking and felt dizzy and fell and hit chin and face on table. She thinks she passed out. No one was at home at the time. Patient unable to recall any further events and unable to remember anything else. She states she can't remember if she ate yesterday. States she remembers calling her mom this morning to ask for help. She states earlier today hands were numb feeling. Since being in ER feeling anxious and feels a little SOB. In ER initially vague on her alcohol use. For this provider patient reports that she last drank 2 days ago and that she drinks 6-7 shots of Tequila daily which is decreased to the amount she drank previously. She complains of chin pain and has noted ecchymosis to chin. Denies neck pain, back pain, extremity pain, fever/chills, diaphoresis, PATIÑO, vision changes, CP, palpitations, cough, sore throat, rhinorrhea, extremity weakness, extremity edema, rashes, urinary symptoms. Patient Reports 2021 participated in alcohol rehab. was sober for 6-8 months at that time. Has been drinking regularly since 2022. Per inpatient chart review patient with hospitalization in 09/2022 for alcohol withdrawal. Per outpatient chart review from PCP visit on 08/16/24 patient reported intermittent alcohol use, with "bouts" occurring every other month, lasting two to three days, during which she consumes up to five pints of hard liquor. Allergies Allergy/AdvReac Type Severity Reaction Status Date / Time No Known Allergies Allergy Verified 11/23/23 09:54 Home Medications Medication Instructions Recorded Confirmed Type cholecalciferol (vitamin D3) 25 25 mcg PO DAILY 11/22/23 08/22/24 History mcg (1,000 unit) capsule (Vitamin D3) cyanocobalamin (vitamin B-12) 1,000 mcg PO DAILY 11/22/23 08/22/24 History 1,000 mcg tablet (Vitamin B-12) fluoxetine 10 mg capsule 10 mg PO DAILY 11/22/23 08/22/24 History thiamine HCl (vitamin B1) 100 mg 100 mg PO QAM 11/22/23 08/22/24 History tablet folic acid 1 mg tablet 1 mg PO DAILY 08/22/24 08/22/24 History omeprazole 20 mg capsule,delayed 20 mg PO DAILY 08/22/24 08/22/24 History release Past Med/Surg History Problem List (Updated 08/22/24 @ 19:46 by Lena West PA-C) Syncope (Acute) GI bleed (Acute) Medical History (Updated 08/22/24 @ 19:46 by Lena West PA-C) Diverticulitis Alcohol use disorder Surgical History (Updated 08/22/24 @ 19:47 by Lena West PA-C) History of salpingectomy History of tonsillectomy and adenoidectomy History of colonoscopy Social History Smoking Status: Former smoker Tobacco Type: Cigarettes Second Hand Exposure: No; Do You Dip or Chew Tobacco: No; Hx Alcohol Use: Yes Alcohol type: hard liquor Hx Substance Use: No Preferred Language: Ugandan Communication Ability: Effective Union Steward Required: No Beliefs That Will Affect Care: None Current Living Situation: Alone and Family Current Living Situation Comment: has 3 young daughters Feels Safe at Home: Yes Assistive Devices: None Review of Systems Review of Systems: All systems reviewed & are unremarkable except as noted in HPI & below Physical Exam Physical Exam: PE per Dr Epps Results & Data Results & Data Vital Signs (Past 12 Hours) Vital Signs Temp Pulse Pulse Resp BP BP Pulse Ox 08/22/24 18:47 102 H 21 157/100 H 99 08/22/24 16:17 105 H 14 156/104 H 98 08/22/24 14:12 100 H 08/22/24 13:45 109 H 20 97 08/22/24 13:45 97 08/22/24 13:45 103 H 20 146/95 H 97 08/22/24 13:12 36.6 C 118 H 17 155/100 H 98 O2 Del Method 08/22/24 18:47 Room Air 08/22/24 16:17 Room Air 08/22/24 14:12 08/22/24 13:45 Room Air 08/22/24 13:45 Room Air 08/22/24 13:45 Room Air 08/22/24 13:12 Room Air Laboratory Results Short CBC 08/22/24 Range/Units 13:21 WBC 11.16 H (4.8-10.8) K/ul Hgb 14.2 (12.0-16.0) g/dl Hct 40.5 (37.0-47.0) % Plt Count 353 (130-400) K/uL BMP 08/22/24 13:21 Sodium 139 Potassium 3.7 Chloride 101 Carbon Dioxide 20 L BUN 8 Creatinine 0.68 Glucose 84 Calcium 9.0 Liver Function 08/22/24 Range/Units 13:21 Total Bilirubin 1.1 H (0.2-1.0) mg/dl AST 24 (13-39) U/L ALT 16 (7-52) U/L Alkaline Phosphatase 71 (34-104) U/L Albumin 4.7 (3.4-5.0) gm/dl Diagnostic Findings Chest X-Ray 08/22/24 13:15 XR chest 1V portable CLINICAL HISTORY: Chest pain, nonspecific COMPARISON STUDY: 11/02/2023 FINDINGS: Heart size and pulmonary vasculature are normal. No effusion, consolidation, or pneumothorax. IMPRESSION: No acute findings. ACT 112: Negative or not required by law. Electronically signed by: Miles Velásquez M.D. 08/22/2024 1:37 PM Abdomen/Pelvis CT 08/22/24 14:[address] WITH IV CONTRAST CT DOSE: 2815.58 mGy.cm HISTORY: Gi bleed TECHNIQUE: Multiaxial CT images of the abdomen and pelvis were performed following the IV administration of 90 cc of Optiray, A dose lowering technique was utilized adhering to the principles of ALARA. COMPARISON STUDY: 02/04/2024 FINDINGS: ABDOMEN: There is a small hiatal hernia. There is mild fatty liver. Otherwise the liver, gallbladder, spleen, pancreas, and adrenal glands are unremarkable. Kidneys show no hydronephrosis or calculi. No abdominal aortic aneurysm. Pelvis: Uterus and adnexa are grossly unremarkable. Urinary bladder is decompressed. There is trace of pelvic free fluid, likely physiologic. There is mild sigmoid diverticulosis. No acute diverticulitis. There is minimal retained stool. Normal appendix. No bowel inflammation or obstruction. No free fluid, free air, or abscess. No enlarged adenopathy. Osseous structures: No acute osseous findings. IMPRESSION: No acute findings. ACT 112: Negative or not required by law. The above report was generated using voice recognition software. It may contain grammatical, syntax or spelling errors. Electronically signed by: Miles Velásquez M.D. 08/22/2024 3:[address] 08/22/24 14:37 CT cervical spine wo con CLINICAL HISTORY: trauma. COMPARISON: 11/22/2023 TECHNIQUE: Multiple axial CT images of the cervical spine were obtained without contrast. A dose lowering technique was utilized adhering to the principles of ALARA. FINDINGS: Stable minimal degenerative changes at the lower cervical spine. No fracture or subluxation seen. IMPRESSION: No cervical spine fracture seen. ACT 112: Negative or not required by law. The above report was generated using voice recognition software. It may contain grammatical, syntax or spelling errors. Electronically signed by: Miles eVlásquez M.D. 08/22/2024 3:37 PM Chest X-Ray 08/22/24 14:37 XR chest 1V portable CLINICAL HISTORY: fall COMPARISON STUDY: 08/22/2024 FINDINGS: Heart size and pulmonary vasculature are normal. No effusion, consolidation, or pneumothorax. IMPRESSION: No acute findings. ACT 112: Negative or not required by law. Electronically signed by: Miles Velásquez M.D. 08/22/2024 3:[address] 08/22/24 14:[address] WITHOUT CONTRAST CLINICAL HISTORY: Trauma. COMPARISON STUDY: Facial bone CT November 22, 2023. TECHNIQUE: A maxillofacial CT was performed without IV contrast. Coronal and sagittal reformats were viewed. Automated exposure control was utilized for the study. A dose lowering technique was utilized adhering to the principles of ALARA. FINDINGS: A 2.2 cm midline submental hyperdense focus is suggestive of a contusion. No facial fractures are present. Orbital floors are intact. Alignment of the temporomandibular joints is anatomic. The globes are intact. There is no retrobulbar hematoma. IMPRESSION: No acute facial fracture. Inferior facial contusion. ACT 112: Negative or not required by law. Electronically signed by: Leonid Sewell M.D. 08/22/2024 3:[address] 08/22/24 14:37 CT head/brain wo con CLINICAL HISTORY: trauma. TECHNIQUE: Multiple axial CT images of the head were obtained without contrast. A dose lowering technique was utilized adhering to the principles of ALARA. COMPARISON: 11/22/2023 FINDINGS: No intracranial hemorrhage seen. No mass effect, midline shift, or hydrocephalus. No skull fracture seen. Visualized paranasal sinuses and mastoid air cells are clear. IMPRESSION: No acute findings. ACT 112: Negative or not required by law. The above report was generated using voice recognition software. It may contain grammatical, syntax or spelling errors. Electronically signed by: Miles Velásquez M.D. 08/22/2024 3:35 PM Supervising Physician Co-Signing Physician Notes Presents with bloody bowel movement since yesterday Also had dizziness and passed out yesterday with a fall. Does not remember much after that Associated nausea and vomiting On exam, General: +Ill appearing, Bruise on lower jaw Eyes: PERRL, conjunctivae normal, not pale, EOM intact bilaterally ENMT: External ear and nose normal, oropharynx normal Respiratory: Normal respiratory effort, no respiratory distress, lungs clear to auscultation, no crackles and no wheezes Cardiovascular: RRR S1 S2 Gastrointestinal (Abdomen): Abdomen is not distended, soft, non-tender to palpation, no guarding, no palpable hepatosplenomegaly, normal bowel sounds Musculoskeletal: No pedal edema Neurologic: Alert and oriented x 3, No focal weakness, sensation grossly intact Psychiatric: Anxious affect. Head CT, face CT, cervical spine CT, abdominal pelvic CT did not show any acute fractures. The chest x-ray did not show any acute abnormality. Based on history, GI bleed appeared to be lower GI. Will change PPI drip to IV PPI for now. GI consult With the hemoglobin Will keep n.p.o. past midnight. Provided access for counseling regarding alcohol cessation Case management to provide resources. Alcohol withdrawal management per protocol Agree with other plans as detailed by Lena West PA-C I spent a total of 45 minutes coordinating, documenting and providing care for this patient excluding time spent in performance of separately billed services
[2024-08-22 21:09] LABS: Hematocrit (blood only) 34.3 % (37.0-47.0)
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
--- OUTSIDE RECORDS SUMMARY | 2024-08-22 21:22 | External Medical Summary | Summary of Care ---
Author Name Unknown Organization [facility] Address [address] [place] [address] Phone [phone] Care Team Providers Care Computerized Mill Recorder Name Role Phone Stephanie Dunn MD Primary Care Provider Encounter Details Date Type Department Care Team (Late st Contact Info) Description 08/13/2024 Orders Only Outcomes Research Department [address] [place] [address] Sil Hernaedz CHRA [facility] Research Other*[id number] Allergies No known active allergiesdocumented as of this encounter (statuses as of 08/13/2024) Medications Thiamine HCl 100 MG Oral Tablet [...] the morning. 30 Capsule 5 4 Active Omeprazole 20 MG Oral Capsule Delayed Release (PriLOSEC)Indicatio ns:Gastroesophageal reflux disease with esophagitis without hemorrhage TAKE 1 CAPSULE BY MOUTH IN THE MORNING. 1 HOUR BEFORE THE FIRST MEAL OF THE DAY. 30 Capsule 5 5 Active documented as of this encounter (statuses as of 08/13/2024) Active Problems Problem Noted Date Diagnosed Date [...] as of this encounter (statuses as of 08/13/2024) Resolved Problems Problem Noted Date Diagnosed Date [...] as of this encounter (statuses as of 08/13/2024) Immunizations Name Administration Dates Next Due Seasonal [...] on file documented as of this encounter Plan of Treatment Upcoming Encounters Date Type Department Care Team (Late st Contact Info) Description 08/16/2024 10:40 AM EDT Office Visit Family Practice [facility] [address] [place] [address] Stephanie Dunn MD [address] [place] [address] Scheduled Orders Name Type Priority Associated Diagnoses Orde r Schedule MYCODE SUBSEQUENT ADULT Lab Routine [facility] Research Other*[id number] Every 6 Months for 2 Occurrences starting 08/13/2024 until 09/02/2025 Scheduled Procedures Name Priority Associated Diagnoses Date/Ti [...] as of this encounter Visit Diagnoses Diagnosis MyCode Research Other*[id number] documented in this encounter Care Teams Computerized Mill Recorder Relationship Specialty Start Date End Date Stephanie Dunn MD [address] [place] [address] PCP - General Internal Medicine 07/23/21 documented as of this encounter
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
--- OUTSIDE RECORDS SUMMARY | 2024-08-22 21:23 | External Medical Summary | Summary of Care ---
Author Name Unknown Organization [facility] Address [address] [place] [address] Phone [phone] Care Team Providers Care Box Shook Patcher Name Role Phone Stephanie Dunn MD Primary Care Provider Reason for Visit * Reason Onset Date Comments Appointment 06/20/2024 Encounter Details Date Type Department Care Team (Late st Contact Info) Description 06/20/2024 Telephone Family Practice [facility] [address] [place] [address] Stephanie Dunn MD [address] [facility] [place] [address] Appointment Allergies No known active allergiesdocumented as [...] 10/18/2022 Hyponatremia 10/18/2022 Overview (10/18/2022): Admitted to [facility] on 10/13/2022 Encounter for other contraceptive [...] 08/16/2024 10:40 AM EDT Office Visit Family [facility] [address] [address] Stephanie Dunn MD [address] [place] [address] Scheduled Procedures Name Priority Associated Diagnoses Date/Ti [...] filedocumented as of this encounter Care Teams Box Shook Patcher Relationship Specialty Start Date End Date Stephanie Dunn MD [address] [place] [address] PCP - General Internal Medicine 07/23/21 documented as of this encounter
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
[2024-08-22] MEDS ORDERED: Ativan IV Alcohol Withdrawal--Active Protocol IV PRN (22:30)
[2024-08-22] MEDS ORDERED: Ativan PO Alcohol Withdrawal--Active Protocol PO PRN (22:30)
[2024-08-22] MEDS ORDERED: POLYETHYLENE (MIRALAX) 17 GM PACK PO PRN (22:30)
[2024-08-22] MEDS ORDERED: LORazepam 1 MG TAB PO PRN ×2 (22:30)
[2024-08-22] MEDS ORDERED: GABAPENTIN 1200MG ALCOHOL WITHDRAWAL LOAD PO STA (22:30)
[2024-08-22] MEDS ORDERED: LORazepam 2 MG/1 ML VIAL IV PRN ×2 (22:30)
[2024-08-22] MEDS: GABAPENTIN 600 MG TAB PO ONE (23:15)
[2024-08-22] MEDS: PANTOprazole 40 MG/10 ML SYR IV SCH (23:15)
[2024-08-22] MEDS: MoRPHine SULFATE 4 MG/ML 1 ML CARP\\VIAL IV PRN (23:48)
[2024-08-22] MEDS: ONDANSETRON INJ 2 MG/ML 2 ML VIAL IV PRN (23:54)
[2024-08-23 00:29] LABS: Hematocrit (blood only) 32.7 % (37.0-47.0); Hemoglobin 11.4 g/dl (12.0-16.0)
[2024-08-23] MEDS: GABAPENTIN 600 MG TAB PO SCH ×2 (06:16→21:25)
[2024-08-23 07:27] LABS: Basophils # (auto) 0.04 K/uL (0.00-0.20); Basophils % (auto) 0.7 %; Eosinophils # (auto) 0.04 K/uL (0.00-0.50); Eosinophils % (auto) 0.7 %; Hemoglobin 11.1 g/dl (12.0-16.0); Lymphocytes # (auto) 1.88 K/uL (1.20-3.40); Lymphocytes % (auto) 33.8 %; Mean Corpuscular Hemoglobin 32.4 pg (25.0-34.0); Mean Corpuscular Hgb Conc 34.7 g/dL (32.0-36.0); Mean Corpuscular Volume 93.3 fL (80.0-100.0); Mean Platelet Volume 9.5 fL (9.4-12.4); Monocytes # (auto) 0.36 K/uL (0.11-0.59); Monocytes % (auto) 6.5 %; Neutrophils # (auto) 3.25 K/uL (1.40-6.50); Neutrophils % (auto) 58.3 %; Platelet Count 281 K/uL (130-400); RDW Coefficient of Variation 14.1 % (11.5-14.5); RDW Standard Deviation 48.1 fL (36.4-46.3); Red Blood Count 3.43 M/uL (4.20-5.40); White Blood Count 5.57 K/ul (4.8-10.8)
[2024-08-23] MEDS: THIAMINE HCL 100 MG in SYRINGE 9 ML IV SCH (07:46)
[2024-08-23 07:55] LABS: Albumin Globulin Ratio 1.5 (0.9-2); Albumin Level 3.7 gm/dl (3.4-5.0); BUN Creatinine Ratio 10.9 (10-20); Bilirubin,Total 1.4 mg/dl (0.2-1.0); Calcium 7.9 mg/dl (8.6-10.3); Creatinine Clr Calc Pharmacy 170.7 ml/min; Globulin 2.4 gm/dl (2.5-4.0); Potassium 3.3 mmol/L (3.5-5.1); Total Protein 6.1 gm/dl (6.0-8.3)
--- NOTE | 2024-08-23 09:34 | Gastrointestinal Consultation ---
Date of Consultation August 23, 2024 Assessment & Plan (1) GI bleed: 44 year old female with history of GERD, depression, ETOH abuse and others admitted through the ED following a syncopal episode and fall - rectal bleeding intermittently following loose stools on Tuesday Hemodynamically stable, Awake, alert, oriented, HGB 11.1 w/o BUN elevation, not anticoagulated, no NSAIDs, family history of IBD, GI malignancy. CT negative, colon at [facility] four months ago w/ internal/external hemorrhoids, sigmoid diverticular disease and a 4mm cecal polyp. Suspect her bleeding is either infectious in etiology or related to hemorrhoids/diverticular disease. Given hemodynamic stability, recent colonoscopy, will hold on endoscopic evaluation at present time. Proceed w/ evaluation of syncope. We will re-assess tomorrow. - Check stool studies given report of diarrhea at onset - Supportive measures - Trend H&H - Monitor GI output - Transfuse PRN per primary team - Agree w/ diet as tolerated I spent a total of 60 minutes on the date of service in review of patient's record, and previously obtained information in person and appropriate medical visit, discussion and education of plan, with patient and/or caregiver, placing orders for tests/referral/procedures as medically necessary and documentation of pertinent clinical information in patient's medical records for their visit today. Supervising Physician Co-Signing Physician Notes I personally saw and examined the patient. I have reviewed the chart and agree with the documentation provided by the MUD LOGGER including discussion about the assessment, treatment and plan. Briefly, 44 year old female with history of GERD, depression, ETOH abuse and others admitted through the ED following a syncopal episode and fall - rectal bleeding intermittently following loose sto ols on Tuesday Hemodynamically stable, Awake, alert, oriented, HGB 11.1 w/o BUN elevation, not anticoagulated, no NSAIDs, family history of IBD, GI malignancy. CT negative, colon at [facility] four months ago w/ internal/external hemorrhoids, sigmoid diverticular disease and a 4mm cecal polyp. I think she has alcoholic liver disease with fatty liver present already. She needs to join aa and consider outpatient rehab. Her rectal bleeding is from diarrhea secondary to norovirus infection leading to her hemorrhoids getting inflamed. Supportive care for this with IV fluids and a lactose-free diet. He can use hydrocortisone Paroximene cream 4 times daily as needed. Recent colonoscopy already shown above. GI will sign off History of Present Illness Reason for Consultation: rectal bleeding Requesting Physician: Paula Mccartney MD Attending Physician: Paula Mccartney MD History of Present Illness 44 year old female with history of GERD, depression, ETOH abuse and others admitted through the ED following a syncopal episode and fall - GI was asked to evaluate for rectal bleeding. Suggests loose stools Tuesday followed some blood in her stool intermittently since Tuesday. Notes that anytime she would pass stool/urine there would be some bright red blood present via her rectum. Denies abd pain. No nausea/vomiting. Chronic GERD. No dysphagia. Awake, alert, oriented. Hemodynamically stable. Not anticoagulated. Denies NSAIDs. Uses ETOH frequently - ETOH level 41.1. No family history of IBD, GI malignancy. CTAP 2024: There is a small hiatal hernia. There is mild fatty liver. Otherwise the liver, gallbladder, spleen, pancreas, and adrenal glands are unremarkable. Kidneys show no hydronephrosis or calculi. No abdominal aortic aneurysm.Uterus and adnexa are grossly unremarkable. Urinary bladder is decompressed. There is trace of pelvic free fluid, likely physiologic. There is mild sigmoid diverticulosis. No acute diverticulitis. There is minimal retained stool. Normal appendix. No bowel inflammation or obstruction. No free fluid, free air, or abscess. No enlarged adenopathy. Osseous structures: No acute osseous findings. Colonoscopy 2024: Hemorrhoids found on perianal exam. One 4 mm polyp in the cecum, removed with a cold snare. Resected and retrieved.Diverticulosis in the sigmoid colon. Internal hemorrhoids. Allergies Allergy/AdvReac Type Severity Reaction Status Date / Time No Known Allergies Allergy Verified 11/23/23 09:54 Home Medications Medication Instructions Recorded Confirmed Type cholecalciferol (vitamin D3) 25 25 mcg PO DAILY 11/22/23 08/22/24 History mcg (1,000 unit) capsule (Vitamin D3) cyanocobalamin (vitamin B-12) 1,000 mcg PO DAILY 11/22/23 08/22/24 History 1,000 mcg tablet (Vitamin B-12) fluoxetine 10 mg capsule 10 mg PO DAILY 11/22/23 08/22/24 History thiamine HCl (vitamin B1) 100 mg 100 mg PO QAM 11/22/23 08/22/24 History tablet folic acid 1 mg tablet 1 mg PO DAILY 08/22/24 08/22/24 History omeprazole 20 mg capsule,delayed 20 mg PO DAILY 08/22/24 08/22/24 History release Patient History Medical History (Updated 08/22/24 @ 19:46 by Lena West PA-C) Diverticulitis Alcohol use disorder Surgical History (Updated 08/22/24 @ 19:47 by Lena West PA-C) History of salpingectomy History of tonsillectomy and adenoidectomy History of colonoscopy Social History Smoking Status: Never smoker Tobacco Type: Cigarettes Second Hand Exposure: No; Do You Dip or Chew Tobacco: No; Tobacco Cessation Education Requested by Patient: No Hx Alcohol Use: Yes Alcohol type: beer and hard liquor Hx Substance Use: No Preferred Language: British Communication Ability: Effective Hydrology Teacher Required: No Beliefs That Will Affect Care: None Current Living Situation: Family Current Living Situation Comment: has 3 young daughters Other Information That Helps Us Care for You: No Feels Safe at Home: Yes Safety Concerns: Feels Safe At This Time Assistive Devices: None Review of Systems 2 Review of Systems: All other findings negative except as noted in HPI. Physical Exam Constitutional: WD/WN, vitals as above Respiratory: normal respiratory effort, lungs clear to auscultation Cardiovascular: Rate/Rhythm: regular rate and regular rhythm Gastrointestinal (Abdomen): normal bowel sounds, soft, nontender, no hepatosplenomegaly Skin: no rashes, warm and dry Results & Data Vital Signs (Past 12 Hours) Vital Signs Temp Pulse Pulse Pulse Resp BP BP 08/23/24 08:04 98.1 F 87 17 142/86 H 08/23/24 02:55 98.1 F 92 H 18 149/92 H 08/22/24 22:51 97.5 F L 99 H 18 170/107 H 08/22/24 22:44 102 H 08/22/24 21:59 106 H 18 161/99 H Pulse Ox O2 Del Method 08/23/24 08:04 97 Room Air 08/23/24 02:55 98 Room Air 08/22/24 22:51 99 Room Air 08/22/24 22:44 08/22/24 21:59 98 Room Air Laboratory Results 08/23/24 08/23/24 08/22/24 Range/Units 06:48 00:16 20:34 WBC 5.57 (4.8-10.8) K/ul RBC 3.43 L (4.20-5.40) M/uL Hgb 11.1 L 11.4 L 12.0 (12.0-16.0) g/dl Hct 32.0 L 32.7 L 34.3 L (37.0-47.0) % MCV 93.3 (80.0-100.0) fL MCH 32.4 (25.0-34.0) pg MCHC 34.7 (32.0-36.0) g/dL RDW Std Deviation 48.1 H (36.4-46.3) fL RDW Coeff of Andree 14.1 (11.5-14.5) % Plt Count 281 (130-400) K/uL MPV 9.5 (9.4-12.4) fL Immature Gran % (Auto) 0.0 % Neut % (Auto) 58.3 % Lymph % (Auto) 33.8 % Hickman % (Auto) 6.5 % Eos % (Auto) 0.7 % Baso % (Auto) 0.7 % Neut # (Auto) 3.25 (1.40-6.50) K/uL Lymph # (Auto) 1.88 (1.20-3.40) K/uL Hickman # (Auto) 0.36 (0.11-0.59) K/uL Eos # (Auto) 0.04 (0.00-0.50) K/uL Baso # (Auto) 0.04 (0.00-0.20) K/uL Immature Gran # (Auto) 0.00 L (0.01-0.20) K/uL PT (9.0-12.0) Seconds INR (0.9-1.1) APTT (21-31) Seconds PTT Ratio Sodium 136 (136-145) mmol/L Potassium 3.3 L (3.5-5.1) mmol/L Chloride 103 (98-107) mmol/L Carbon Dioxide 24 (21-32) mmol/L Anion Gap 9 (3-11) BUN 6 (6-23) mg/dl Creatinine 0.55 L (0.6-1.2) mg/dl Est Cr Clr Drug Dosing 170.7 ml/min eGFR 116.56 BUN/Creatinine Ratio 10.9 (10-20) Glucose 93 (70-99(Fasting)) mg/dl Calcium 7.9 L (8.6-10.3) mg/dl Magnesium (1.7-2.4) mg/dl Total Bilirubin 1.4 H (0.2-1.0) mg/dl AST 18 (13-39) U/L ALT 11 (7-52) U/L Alkaline Phosphatase 55 (34-104) U/L Troponin I High Sens (0-14) pg/ml Total Protein 6.1 D (6.0-8.3) gm/dl Albumin 3.7 (3.4-5.0) gm/dl Globulin 2.4 L (2.5-4.0) gm/dl Albumin/Globulin Ratio 1.5 (0.9-2) Lipase (11-82) U/L TSH (0.300-4.500) uIu/ml Ethyl Alcohol mg/dL (<10.0) mg/dl 08/22/24 08/22/24 Range/Units 15:06 13:21 WBC 11.16 H (4.8-10.8) K/ul RBC 4.45 (4.20-5.40) M/uL Hgb 14.2 (12.0-16.0) g/dl Hct 40.5 (37.0-47.0) % MCV 91.0 (80.0-100.0) fL MCH 31.9 (25.0-34.0) pg MCHC 35.1 (32.0-36.0) g/dL RDW Std Deviation 47.6 H (36.4-46.3) fL RDW Coeff of Andree 14.2 (11.5-14.5) % Plt Count 353 (130-400) K/uL MPV 9.0 L (9.4-12.4) fL Immature Gran % (Auto) 0.3 % Neut % (Auto) 72.6 % Lymph % (Auto) 21.8 % Hickman % (Auto) 4.4 % Eos % (Auto) 0.1 % Baso % (Auto) 0.8 % Neut # (Auto) 8.11 H (1.40-6.50) K/uL Lymph # (Auto) 2.43 (1.20-3.40) K/uL Hickman # (Auto) 0.49 (0.11-0.59) K/uL Eos # (Auto) 0.01 (0.00-0.50) K/uL Baso # (Auto) 0.09 (0.00-0.20) K/uL Immature Gran # (Auto) 0.03 (0.01-0.20) K/uL PT 10.3 (9.0-12.0) Seconds INR 0.9 (0.9-1.1) APTT 26 (21-31) Seconds PTT Ratio 1.0 Sodium 139 (136-145) mmol/L Potassium 3.7 (3.5-5.1) mmol/L Chloride 101 (98-107) mmol/L Carbon Dioxide 20 L (21-32) mmol/L Anion Gap 18 H (3-11) BUN 8 (6-23) mg/dl Creatinine 0.68 (0.6-1.2) mg/dl Est Cr Clr Drug Dosing 123.8 ml/min eGFR 110.75 BUN/Creatinine Ratio 11.8 (10-20) Glucose 84 (70-99(Fasting)) mg/dl Calcium 9.0 (8.6-10.3) mg/dl Magnesium 1.7 (1.7-2.4) mg/dl Total Bilirubin 1.1 H (0.2-1.0) mg/dl AST 24 (13-39) U/L ALT 16 (7-52) U/L Alkaline Phosphatase 71 (34-104) U/L Troponin I High Sens < 2.3 (0-14) pg/ml Total Protein 7.8 (6.0-8.3) gm/dl Albumin 4.7 (3.4-5.0) gm/dl Globulin 3.1 (2.5-4.0) gm/dl Albumin/Globulin Ratio 1.5 (0.9-2) Lipase 9 L (11-82) U/L TSH 1.500 (0.300-4.500) uIu/ml Ethyl Alcohol mg/dL 41.1 H (<10.0) mg/dl PG Care Time/CCT Total # of Minutes Spent Total Time Spent with Patient: Total time spent is greater than 50% in coordination of care (as documented) at patient's floor/unit and/or counseling patient: Coding Level of Care Code 43930 IN/OBS CONSULT LVL 4,60M Diagnoses GI bleed K92.2
[2024-08-23] MEDS: FLUoxetine HCL 10 MG CAP PO SCH (10:31)
[2024-08-23] MEDS: MULTIVITAMIN TAB PO SCH (10:31)
[2024-08-23] MEDS: FOLIC ACID 1 MG TAB PO SCH (10:31)
[2024-08-23] MEDS: ACETAMINOPHEN 325 MG TAB PO PRN (10:31)
--- NOTE | 2024-08-23 11:07 | Electrocardiogram Report ---
Test Reason : Blood Pressure : */* mmHG Vent. Rate : 123 BPM Atrial Rate : 123 BPM P-R Int : 130 ms QRS Dur : 78 ms QT Int : 330 ms P-R-T Axes : 42 -19 34 degrees QTcB Int : 472 ms Sinus tachycardia Poor R wave progression, consider anterior NH vs. lead placement vs. LVH Abnormal ECG When compared with ECG of 23-Nov-2023 09:11, Questionable change in initial forces of Anterior leads Confirmed by Donato Mon ([id number]) on 08/23/2024 11:07:02 AM Referred By: Confirmed By: Donato Mon
[2024-08-23] MEDS ORDERED: LIDOCAINE 4% CREAM 15 GM TUBE EXT PRN (12:57)
--- NOTE | 2024-08-23 13:26 | Hospitalist Progress Note ---
Date of Service August 23, 2024 Assessment & Plan (1) Syncope: (2) GI bleed: (3) Alcohol withdrawal: Plan Ms. Guzman is 44 year old female with PMH alcohol abuse, GERD, depression admitted for evaluation of syncope and possible GIB. Patient reports BRBPR and severe constipation at since Tuesday, potentially contributing to sycopal episode. Stool pcr positive for norovirus. #BRBPR #Norovirus #constipation Reports bright red rectal bleeding x 2 days, lower abdominal discomfort; tiny solid, painful bowel movements CT Abd/pelvis: No acute findings -start bowel regimen GI consulted: no indications for repeat scope, continue conservative measures transition PPI to PO qam as not likely UGIB given stable HH and presentation repeat cbc with hgb at stable at ~11 Trend CBC in am #Face Contusion #Syncope CT Head: no acute intracranial abnormality CT C-Spine: no acute fracture Face CT: No acute facial fracture. Inferior facial contusion. CXR: no consolidation EKG sinus tachycardia, rate 123 per my interpretation DDx: ETOH intoxication, seizure, arrhythmia Monitor on telemetry, no events noted ECHO stable EF 60-65% Plan for orthostats in am likely 2/2 acute illness as above #Alcohol withdrawal: Reported drinking 6-7 shots vodka daily. reports last drink 2 days ago In ER ETOH: 41 In ER given Ativan 0.5mg ETOH withdrawal protocol with gabapentin and Ativan ETOH cessation encouraged Daily multivitamin, folic acid, thiamine supplement #Depression Continue fluoxetine DVT Prophylaxis SCDs Admit telemetry Full Code as per discussion with pt Follows with Dr Dunn for routine care Admission and Anticipated Discharge Date Admission Date: August 22, 2024 Subjective Reports feeling abdominal bloat and discomfort denies nausea or vomiting states that she has been constipated since Tuesday--noting very painful attempts to pass minimal stool denies fevers chills endorses still passing brbpr Physical Exam Constitutional: WD/WN, vitals as above Respiratory: normal respiratory effort, lungs clear to auscultation Cardiovascular: RRR, no murmur, no edema Gastrointestinal (Abdomen): soft, nondistended, some tenderness noted diffusely reported as pressure Results & Data Results & Data Vital Signs (Past 12 Hours) Vital Signs Temp Pulse Resp BP Pulse Ox O2 Del Method 08/23/24 11:40 36.7 C 87 18 124/78 97 Room Air 08/23/24 08:04 36.7 C 87 17 142/86 H 97 Room Air 08/23/24 02:55 36.7 C 92 H 18 149/92 H 98 Room Air Laboratory Results Short CBC 08/22/24 08/22/24 08/23/24 Range/Units 13:21 20:34 00:16 WBC 11.16 H (4.8-10.8) K/ul Hgb 14.2 12.0 11.4 L (12.0-16.0) g/dl Hct 40.5 34.3 L 32.7 L (37.0-47.0) % Plt Count 353 (130-400) K/uL 08/23/24 Range/Units 06:48 WBC 5.57 (4.8-10.8) K/ul Hgb 11.1 L (12.0-16.0) g/dl Hct 32.0 L (37.0-47.0) % Plt Count 281 (130-400) K/uL BMP 08/22/24 08/23/24 13:21 06:48 Sodium 139 136 Potassium 3.7 3.3 L Chloride 101 103 Carbon Dioxide 20 L 24 BUN 8 6 Creatinine 0.68 0.55 L Glucose 84 93 Calcium 9.0 7.9 L Liver Function 08/22/24 08/23/24 Range/Units 13:21 06:48 Total Bilirubin 1.1 H 1.4 H (0.2-1.0) mg/dl AST 24 18 (13-39) U/L ALT 16 11 (7-52) U/L Alkaline Phosphatase 71 55 (34-104) U/L Albumin 4.7 3.7 (3.4-5.0) gm/dl Medications Administered Home Medications Medication Instructions Recorded Confirmed Last Taken cholecalciferol (vitamin D3) 25 25 mcg PO DAILY 11/22/23 08/22/24 11/22/23 mcg (1,000 unit) capsule (Vitamin D3) cyanocobalamin (vitamin B-12) 1,000 mcg PO DAILY 11/22/23 08/22/24 11/22/23 1,000 mcg tablet (Vitamin B-12) fluoxetine 10 mg capsule 10 mg PO DAILY 11/22/23 08/22/24 11/22/23 thiamine HCl (vitamin B1) 100 mg 100 mg PO QAM 11/22/23 08/22/24 11/22/23 tablet folic acid 1 mg tablet 1 mg PO DAILY 08/22/24 08/22/24 Unknown omeprazole 20 mg capsule,delayed 20 mg PO DAILY 08/22/24 08/22/24 Unknown release Active Medications Generic Name Dose Route Start Last Admin Trade Name Humbertoq PRN Reason Stop Dose Admin Acetaminophen 650 mg 08/22/24 22:30 08/23/24 10:31 Acetaminophen 325 Mg Tab PO 09/21/24 22:29 650 mg Q4H PRN Administration Pain or Fever Fluoxetine HCl 10 mg 08/23/24 09:00 08/23/24 10:31 Fluoxetine Hcl 10 Mg Cap PO 09/22/24 08:59 10 mg DAILY NAOMY Administration Folic Acid 1 mg 08/23/24 09:00 08/23/24 10:31 Folic Acid 1 Mg Tab PO 09/22/24 08:59 1 mg QAM NAOMY Administration Thiamine HCl 100 mg/ Syringe 10 mls @ 2 mls/min 08/23/24 09:00 08/23/24 07:46 IV 09/22/24 08:59 2 mls/min QAM NAOMY Administration Pantoprazole Sodium 40 mg in 10 mls @ 5 mls/min 08/22/24 22:30 08/23/24 07:45 Protonix IV 09/21/24 22:29 5 mls/min BID NAOMY Administration Morphine Sulfate 3 mg 08/22/24 23:29 08/22/24 23:48 Morphine Sulfate 4 Mg/Ml 1 Ml Carp\Vial IV 09/05/24 23:28 3 mg Q4H PRN Administration Mod-Sev Pain (Scale 4-10) Multivitamins 1 tab 08/23/24 09:00 08/23/24 10:31 Multivitamin Tab PO 09/22/24 08:59 1 tab QAM NAOMY Administration Ondansetron HCl 4 mg 08/22/24 22:30 08/23/24 07:45 Ondansetron Inj 2 Mg/Ml 2 Ml Vial IV 09/21/24 22:29 4 mg Q6H PRN Administration Nausea
[2024-08-23] MEDS: bisacodyL 5 MG TABEC PO ONE (13:28)
[2024-08-23] MEDS: POLYETHYLENE (MIRALAX) 17 GM PACK PO SCH (13:28)
[2024-08-23 15:47] LABS: Adenovirus F 40/41 PCR Not Detected (NotDetected); Astrovirus PCR Not Detected (NotDetected); Campylobacter PCR Not Detected (NotDetected); Cryptosporidium PCR Not Detected (NotDetected); Cyclospora cayetanensis PCR Not Detected (NotDetected); Entamoeba histolytica PCR Not Detected (NotDetected); Enteroaggregative E.coli(EAEC) Not Detected (NotDetected); Enteropathogenic E.coli (EPEC) Not Detected (NotDetected); Enterotoxigenic E.coli (ETEC) Not Detected (NotDetected); Giardia lamblia PCR Not Detected (NotDetected); Plesiomonas shigelloides PCR Not Detected (NotDetected); Rotavirus A PCR Not Detected (NotDetected); Salmonella PCR Not Detected (NotDetected); Sapovirus PCR Not Detected (NotDetected); Shiga-like Toxin E.coli (STEC) Not Detected (NotDetected); Shigella/Enteroinvasive E.coli Not Detected (NotDetected); Vibrio cholerae PCR Not Detected (NotDetected); Vibrio species PCR Not Detected (NotDetected); Yersinia enterocolitica PCR Not Detected (NotDetected)
[2024-08-23 15:54] LABS: Hematocrit (blood only) 33.1 % (37.0-47.0); Hemoglobin 11.4 g/dl (12.0-16.0)
[2024-08-23 15:54] LABS: Norovirus GI/GII PCR DETECTED (NotDetected)
[2024-08-24 04:33] VITALS: RESP 18
[2024-08-24 06:51] LABS: Hematocrit (blood only) 34.5 % (37.0-47.0); Hemoglobin 11.7 g/dl (12.0-16.0); Mean Corpuscular Hemoglobin 32.1 pg (25.0-34.0); Mean Corpuscular Hgb Conc 33.9 g/dL (32.0-36.0); Mean Corpuscular Volume 94.5 fL (80.0-100.0); Mean Platelet Volume 10.1 fL (9.4-12.4); Platelet Count 280 K/uL (130-400); RDW Coefficient of Variation 13.4 % (11.5-14.5); RDW Standard Deviation 47.1 fL (36.4-46.3); Red Blood Count 3.65 M/uL (4.20-5.40); White Blood Count 5.64 K/ul (4.8-10.8)
[2024-08-24 07:07] LABS: BUN Creatinine Ratio 6.8 (10-20); Calcium 8.2 mg/dl (8.6-10.3); Magnesium 1.7 mg/dl (1.7-2.4); Phosphorus 3.2 mg/dl (2.5-4.9); Potassium 3.4 mmol/L (3.5-5.1)
[2024-08-24] MEDS: POTASSIUM CHLORIDE CRTAB 20 MEQ TABCR PO STA (09:04)
[2024-08-24] MEDS: POTASSIUM CHLORIDE / WTR 10 MEQ/100 ML PLCT IV SCH (09:05)
[2024-08-24] MEDS: PANTOprazole 40 MG TAB PO SCH (09:06)
--- NOTE | 2024-08-24 09:44 | Discharge Summary ---
Discharge Summary Date of Service August 24, 2024 Principal Dx & Hospital Course #1 = Principal Diagnosis (1) Syncope: (2) GI bleed: (3) Alcohol withdrawal: Plan Ms. Guzman is 44 year old female with PMH alcohol abuse, GERD, depression admitted for evaluation of syncope and possible GIB. Patient reports BRBPR and severe constipation at since Tuesday, potentially contributing to syncopal episode. Stool pcr positive for norovirus. On day of discharge, patient was tolerating po, reporting reduction in abdominal discomfort, reporting cessation of blood per rectum, and ambulating without difficulty #BRBPR #Norovirus #constipation Reports bright red rectal bleeding x 2 days, lower abdominal discomfort; tiny solid, painful bowel movements CT Abd/pelvis: No acute findings GI consulted: no indications for repeat scope, continue conservative measures continue home ppi encouraged bowel regimen at home to prevent constipation repeat cbc with hgb at stable at ~11 #Face Contusion #Syncope CT Head: no acute intracranial abnormality CT C-Spine: no acute fracture Face CT: No acute facial fracture. Inferior facial contusion. CXR: no consolidation EKG sinus tachycardia, rate 123 per my interpretation DDx: ETOH intoxication, seizure, arrhythmia Monitor on telemetry, no events noted ECHO stable EF 60-65% orthostats negative likely 2/2 acute illness as above #Alcohol withdrawal: Reported drinking 6-7 shots vodka daily. reports last drink 2 days ago In ER ETOH: 41 In ER given Ativan 0.5mg ETOH withdrawal protocol with gabapentin and Ativan ETOH cessation encouraged Daily multivitamin, folic acid, thiamine supplement #Depression Continue fluoxetine Notes For Next Care Provider Repeat BMP in 1 week and follow potassium level Medication Changes From Visit Gabapentin 600mg q12 x 4 doses Admission HPI Per Admitting Provider Patient is 44 year old female with PMH alcohol abuse, GERD, depression presented to ER with c/o rectal bleeding x 2 days. Patient reports bright red blood per rectum x 2 days. Also c/o lower abdominal pain described as "squeezing" since yesterday. States yesterday morning she attempted to take her morning medications and vomited. States vomited yesterday and today. Denies hematemesis. States yesterday was walking and felt dizzy and fell and hit chin and face on table. She thinks she passed out. No one was at home at the time. Patient unable to recall any further events and unable to remember anything else. She states she can't remember if she ate yesterday. States she remembers calling her mom this morning to ask for help. She states earlier today hands were numb feeling. Since being in ER feeling anxious and feels a little SOB. In ER initially vague on her alcohol use. For this provider patient reports that she last drank 2 days ago and that she drinks 6-7 shots of Tequila daily which is decreased to the amount she drank previously. She complains of chin pain and has noted ecchymosis to chin. Denies neck pain, back pain, extremity pain, fever/chills, diaphoresis, PATIÑO, vision changes, CP, palpitations, cough, sore throat, rhinorrhea, extremity weakness, extremity edema, rashes, urinary symptoms. Patient Reports 2021 participated in alcohol rehab. States was sober for 6-8 mo nths at that time. Has been drinking regularly since 2022. Per inpatient chart review patient with hospitalization in 09/2022 for alcohol withdrawal. Per outpatient chart review from PCP visit on 08/16/24 patient reported intermittent alcohol use, with "bouts" occurring every other month, lasting two to three days, during which she consumes up to five pints of hard liquor. Admission Exam Per Admitting Provider General: +Ill appearing, Bruise on lower jaw Eyes: PERRL, conjunctivae normal, not pale, EOM intact bilaterally ENMT: External ear and nose normal, oropharynx normal Respiratory: Normal respiratory effort, no respiratory distress, lungs clear to auscultation, no crackles and no wheezes Cardiovascular: RRR S1 S2 Gastrointestinal (Abdomen): Abdomen is not distended, soft, non-tender to palpation, no guarding, no palpable hepatosplenomegaly, normal bowel sounds Musculoskeletal: No pedal edema Neurologic: Alert and oriented x 3, No focal weakness, sensation grossly intact Psychiatric: Anxious affect. Discharge Exam Constitutional WD/WN, vitals as above Respiratory normal respiratory effort, lungs clear to auscultation Cardiovascular RRR, no murmur, no edema Updated Medication List Medication Instructions Recorded Confirmed Type cholecalciferol (vitamin D3) 25 25 mcg PO DAILY 11/22/23 08/22/24 History mcg (1,000 unit) capsule (Vitamin D3) cyanocobalamin (vitamin B-12) 1,000 mcg PO DAILY 11/22/23 08/22/24 History 1,000 mcg tablet (Vitamin B-12) fluoxetine 10 mg capsule 10 mg PO DAILY 11/22/23 08/22/24 History thiamine HCl (vitamin B1) 100 mg 100 mg PO QAM 11/22/23 08/22/24 History tablet folic acid 1 mg tablet 1 mg PO DAILY 08/22/24 08/22/24 History omeprazole 20 mg capsule,delayed 20 mg PO DAILY 08/22/24 08/22/24 History release gabapentin 600 mg tablet 600 mg PO Q12H #4 tabs 08/24/24 Rx Hospital Stay Data Consultations 08/22/24 18:55 ED Decision to Admit Stat 08/22/24 22:30 Consult Gastroenterology Routine Diagnostic Imagining Performed 08/22/24 14:37 CT abd pelvis IV con only Stat CT cervical spine wo con Stat CT facial bones wo con Stat CT head/brain wo con Stat Pending Results Patient Have Any Pending Studies at Discharge: No Discharge Instructions Given to Patient (Per Discharging Provider) You were admitted for syncope (fainting) and abdominal pain You were noted to be dehydrated and to have norovirus infection The bleeding was suspected to be related to constipation and your gastrointestinal infection you did not require any blood transfusion You were started on gabapentin for alcohol withdrawal prevention. You will take 600mg tonight around 9pm Then 600mg tomorrow (08/25) at 9am and 9pm Then your final tablet at 9am on 08/26 Please discuss resources with your PCP regarding alcohol cessation Total Time Total Time Spent Total Time Spent (In Minutes): 45
[2024-08-24 11:43] VITALS: TEMP 98.1; O2SAT 97
[2024-08-24 14:00] VITALS: BP 117/73
[2024-08-24 14:31] VITALS: PULSE 84
[2024-08-25] MEDS ORDERED: GABAPENTIN 600 MG TAB PO SCH
[2024-08-26] MEDS ORDERED: GABAPENTIN 600 MG TAB PO SCH (12:00)
== END 2024-08-24 14:41 | disposition home or self-care (01) | DRG 378 ==
LOC: ED 13:08 → 2E 19:51 → SUATTDRO 19:51 → 2E 22:00